=== PATIENT | female | born 1975 | race Caucasian/White ===

== ENCOUNTER 2018-07-26 10:20 | Emergency (ER) | payer SELFPAY ==
[2018-07-26 10:20] VITALS: BP 128/87; PULSE 88; RESP 20; TEMP 36.9; O2SAT 99
--- NOTE | 2018-07-26 11:27 | ED_ITS ---
HPI - Abdominal Pain General Chief Complaint: Abdominal Pain Stated Complaint: DISCOMFORT/PAIN/SWELLING/NAUSEA LOWER ABDOMINAL Time Seen by Provider: 07/26/18 11:26 Source: patient Mode of arrival: ambulatory Limitations: no limitations History of Present Illness HPI narrative: 42-year-old female comes to the emergency department with complaint of abdominal pain. Patient states that it started on , that w as at its peak. She states about 2:00 a.m. was when it started. She states it was can a lower pelvic, and it has improved since then. Patient states at the time she was nauseated. She did have any vomiting. She has had sometimes painful bowel movements when she is very constipated. She has not had any frequency urgency or dysuria but states she has had painful sexual activity. Sometimes feels like there is something in the way down there. She has a regular. Sometimes 2 in a month. She regularly has some clear vaginal discharge. She has not had new changes to this. Sometimes there is an odor recently. Patient states that she had a Pap remotely was told that there were changes and she needed a biopsy but she never got that done. She is quite anxious as her mother of ovarian cancer, her grandmother also had ovarian cancer and she never followed up with this. She states she has a lot of anxiety about being in hospitals and typically would not come here but became more more concerned she could have ovarian cancer. She has not seen a doctor in many years and has not follow up regularly. Related Data Home Medications Medication Instructions Recorded Confirmed No Known Home Medications 07/26/18 07/26/18 Allergies Allergy/AdvReac Type Severity Reaction Status Date / Time codeine AdvReac Nausea Verified 07/26/18 10:35 Review of Systems Review of Systems ROS Unobtainable: All systems reviewed & are unremarkable except as noted in HPI and below Constitutional Denies chills, Denies fever(s), Denies lethargy and Denies weakness Cardiovascular Denies chest pain, Denies dyspnea and Denies dyspnea on exertion Respiratory Denies dyspnea and Denies dyspnea on exertion Gastrointestinal Gastrointestinal: Reports abdominal pain (lower pelvic pain), Denies melena, Denies hematochezia, Denies change in bowel habits, Reports tenesmus (sometimes with hard stool), Reports constipation, Denies diarrhea, Denies nausea and Denies vomiting Genitourinary Reports abnormal menses, Denies hematuria, Denies urinary frequency, Denies difficulty voiding, Reports dyspareunia, Denies dysuria, Reports pelvic pain, Denies flank pain, Denies urinary incontinence, Denies urinary hesitancy, Denies urinary urgency, Reports vaginal discharge (typically clear) and Reports vaginal odor (new) Musculoskeletal Denies back pain Neurologic Denies weakness [facility] Social History Smoking Status: Never smoker Family History (Updated 07/26/18 @ 11:45 by Helen Rojas DO) Mother Ovarian cancer Social History (Updated 07/26/18 @ 11:46 by Helen Rojas DO) Smoking Status: Never smoker substance use type: does not use Exam Narrative Exam Narrative: GENERAL: Alert and oriented x three, thin, well-appearing female who appears quite anxious HEENT: Head normocephalic, atraumatic, EOMI, pupils reactive, face symmetric, moist mucous membranes NECK: Supple, full range of motion CARDIOVASCULAR: Regular rate and rhythm without murmurs, rubs or gallops. RESPIRATORY: Breath sounds equal bilaterally, no wheezes rales or rhonchi. ABDOMEN: Soft, nontender. Nondistended. Normoactive bowel sounds all 4 quadrants. No guarding or rebound, rigidity, no mass Female: externa vaginal examl normal, no vaginal bleeding, thin whitish discharge, no odor appreciated, positive for mild cervical motion tenderness, normal speculum exam, no adnexal tenderness/mass. Bimanual exam is normal, no enlarged or tender uterus. Non-gravid. : No CVA tenderness EXTREMITIES: Normal range of motion, no clubbing or edema. Neurovascularly intact NEUROLOGICAL: Cranial nerves II through XII grossly intact. Moving all extremities SKIN: Warm, dry, no petechiae, no rashes or lesions. Initial Vital Signs Initial Vital Signs: Vital Signs Temperature 98.4 F 07/26/18 10:20 Pulse Rate 88 07/26/18 10:20 Respiratory Rate 20 07/26/18 10:20 Blood Pressure 128/87 07/26/18 10:20 Pulse Oximetry 99 07/26/18 10:20 Course Orders Ordered: ED Orders 07/26/18 10:30 Urine Culture Stat Urine Microscopic Stat 07/26/18 11:39 US pelvic complete Stat 07/26/18 12:05 Complete Blood Count AUTO DIFF Stat Comprehensive Metabolic Panel Stat Lipase Stat 07/26/18 13:50 Genital Culture Stat Urine Chlamydia Gonorrhea PCR Stat Wet Prep Tric BV Marlee Stat Vital Signs - 8 hr 07/26/18 10:20 07/26/18 11:54 07/26/18 13:12 Temperature 98.4 F Pulse Rate 88 64 73 Respiratory Rate 20 16 15 Blood Pressure 128/87 Blood Pressure [Left Arm] 121/80 123/68 Pulse Oximetry 99 99 100 MDM - Abdominal Pain Lab Data Attestation: I reviewed the patient's lab results. Result diagrams: 07/26/18 12:05 07/26/18 12:05 Lab Results 07/26/18 07/26/18 07/26/18 Range/Units 10:30 12:05 12:05 WBC 5.9 (4.5-11.0) X10^3/uL RBC 4.29 (4.0-5.2) X10^6/uL Hgb 13.1 (12.0-16.0) g/dL Hct 38.5 (36-46) % MCV 89.7 (80-100) fL MCH 30.5 (26-34) PG MCHC 34.0 (30-36) % RDW 12.4 (11.6-14.8) % Plt Count 206 (150-400) X10^3/uL Neut % (Auto) 73.8 (50-75) % Lymph % (Auto) 18.0 L (25-40) % Gray % (Auto) 7.6 (3-14) % Eos % (Auto) 0.3 L (2-4) % Baso % (Auto) 0.3 (0-2) % Neut # (Auto) 4300 (8006-5421) /uL Lymph # (Auto) 1100 (6309-2227) /uL Gray # (Auto) 400 (0-900) /uL Eos # (Auto) 0 (0-450) /uL Baso # (Auto) 0 (0-100) /uL Sodium 139 (137-145) mmol/L Potassium 3.7 (3.4-5.1) mmol/L Chloride 105 (98-107) mmol/L Carbon Dioxide 26 (22-32) mmol/L BUN 17 (7-17) mg/dL Creatinine 0.60 (0.52-1.04) mg/dL Estimated GFR > 60.0 (>60) mL/min BUN/Creatinine Ratio 28.3 H (6-22) Glucose 112 H (70-100) mg/dL Calcium 9.3 (8.4-10.2) mg/dL Total Bilirubin 0.4 (0.2-1.3) mg/dL AST 16 (14-36) IU/L ALT 13 (9-52) IU/L Alkaline Phosphatase 58 (38-126) U/L Total Protein 7.3 (6.3-8.2) g/dL Albumin 4.1 (3.5-5.0) g/dL Globulin 3.2 (1.7-4.1) g/dL Albumin/Globulin Ratio 1.3 (1.0-2.8) Lipase 51 (23-300) U/L Urine RBC None seen (0-5/HPF) Urine WBC 0-1/hpf (0-5/HPF) Ur Squamous Epith Cells 0-1 /hpf (0-5/HPF) Urine Bacteria None seen (None) Urine Mucus 2+ H (Negative) Ur Culture Indicated? Specimen cultured Point of care testing: Point of Care Testing Test Results Negative Urine Dip Bedside Urine Glucose Negative Bedside Urine Bilirubin + 1 Bedside Urine Ketone +++ 80 Urine Specific [place] 1.025 Bedside Urine Occult Blood - Negative Bedside Urine pH 6.0 Bedside Urine Protein + 30 Bedside Urine Urobilinogen 1+ 2mg Bedside Urine Nitrite - Negative Bedside Urine Leukocytes +/- 15 Esterase Imaging Data pelvic US: Radiologist's impression: [place] [address] Ultrasound Report Signed Patient: Sabrina Stein [facility]#: [id number] : 1975Acct:[id number] Age/Sex: 42 / FDate of Service: 07/26/18 Loc: ED Accession Number: [id number] Procedure: US pelvic complete Ordering Provider: Helen Rojas D.O. PROCEDURE: US PELVIC COMPLETE INDICATIONS: PELVIC PAIN, WORSE , BETTER. ? CYST. FAMILY HISTORY O TECHNIQUE: Real-time scanning was performed of the pelvic organs, with image documentation. Additional endovaginal scanning was necessary due to incomplete visualization of the adnexal and endometrial structures by transabdominal scanning. COMPARISON: None. FINDINGS: Transabdominal scanning: Limited scanning through the kidneys shows no hydronephrosis. No pathologic free abdominal or pelvic fluid. Endovaginal scanning: Uterus: Uterus is anteverted and normal in size, measuring 7.8 x 3.7 x 4.6 cm. No focal myometrial lesion is evident. The endometrial echo stripe measures up to 6 mm in maximal combined thickness. No significant fluid is seen within the endometrium. The endometrium has a trilaminar appearance. Multiple nabothian cysts are evident within the region of the cervix with the largest measuring up to 8 mm in diameter. Ovaries: The ovaries are normal in size. The right ovary measures 3.4 x 1.7 x 2.0 cm. The left ovary measures 2.5 x 1.7 x 1.7 cm. Both ovaries are normal in size without cystic or solid mass. There is a dominant 1.5 cm follicle in the right ovary. Color flow is demonstrated to the ovaries. IMPRESSION: Unremarkable uterus and ovaries. No large ovarian cysts. Dictated by: Joseph Betancourt M.D. on 07/26/2018 at 12:00 Approved by: oJseph Betancourt M.D. on 07/26/2018 at 12:01 [facility] Narrative Medical decision making narrative: Patient is quite anxious about her abdominal pain, she states she thinks she might have had a ruptured ovarian cyst but she is very nervous about ovarian cancer. She has not had follow-up in a long time she has a family history with her mother and grandmother both having it. Discussed she is comfortable doing some basic blood work, on ultrasound as well as pelvic exam. We discussed that we can help get her established with primary care. Patient's ultrasound is negative, lab work does not show any major changes. Patient's pelvic exam she has some discharge and some mild cervical tenderness. Patient states she has had prolonged period of discharge which has been normal for her for many years. She defers any antibiotics at this time and would wait for cultures. Urine is also cultured today. Patient was given referral for the coordinator number but also [facility] as she does not have health insurance currently for health surveillance and Pap smears. Patient left without discharge paperwork bu all instructions were given verbally except for phone number for physician referral line. Discharge Plan Departure Patient Disposition: Home Clinical Impression: Pelvic pain Activity Restrictions/Additional Instructions: Follow-up with the health human resources trainee at [phone] to stab wish a [facility] physician. You can also discussed getting set up with health insurance. [facility] also [facility], well-woman exams for further evaluation/treatment. The phone number is: [phone]. The address [address] You may take Tylenol up to a 1000 mg every 8 hours as needed for pain, you may also take ibuprofen up to 800 mg every 8 hours as needed for pain. Return to the emergency department for fevers greater than 100.4 F, rapidly worsening or new abdominal/pelvic pain, persistent vomiting, black or bloody stools, passing out, new shortness of breath, chest pain or other new or concerning symptoms. Prescriptions: No Action No Known Home Medications RF: 0
--- NOTE | 2018-07-26 11:39 | DI.US.S_ITS ---
PROCEDURE: US PELVIC COMPLETE INDICATIONS: PELVIC PAIN, WORSE URDAY, BETTER. ? CYST. FAMILY HISTORY O TECHNIQUE: Real-time scanning was performed of the pelvic organs, with image documentation. Additional endovaginal scanning was necessary due to incomplete visualization of the adnexal and endometrial structures by transabdominal scanning. COMPARISON: None. FINDINGS: Transabdominal scanning: Limited scanning through the kidneys shows no hydronephrosis. No pathologic free abdominal or pelvic fluid. Endovaginal scanning: Uterus: Uterus is anteverted and normal in size, measuring 7.8 x 3.7 x 4.6 cm. No focal myometrial lesion is evident. The endometrial echo stripe measures up to 6 mm in maximal combined thickness. No significant fluid is seen within the endometrium. The endometrium has a trilaminar appearance. Multiple nabothian cysts are evident within the region of the cervix with the largest measuring up to 8 mm in diameter. Ovaries: The ovaries are normal in size. The right ovary measures 3.4 x 1.7 x 2.0 cm. The left ovary measures 2.5 x 1.7 x 1.7 cm. Both ovaries are normal in size without cystic or solid mass. There is a dominant 1.5 cm follicle in the right ovary. Color flow is demonstrated to the ovaries. IMPRESSION: Unremarkable uterus and ovaries. No large ovarian cysts. Dictated by: Joseph Betancourt M.D. on 07/26/2018 at 12:00 Approved by: Joseph Betancourt M.D. on 07/26/2018 at 12:01
[2018-07-26 11:41] LABS: Bacteria Urine None Seen; RBC Urine None Seen (0-5/HPF)
[2018-07-26 11:54] VITALS: BP 121/80; PULSE 64; RESP 16; O2SAT 99
[2018-07-26 12:14] LABS: Add Manual Diff / Slide Review NO; Basophils Absolute Auto 0 /uL (0-100); Basophils Percent Auto 0.3 % (0-2); Eosinophils Absolute Auto 0 /uL (0-450); Eosinophils Percent Auto 0.3 % (2-4); Hematocrit 38.5 % (36-46); Hemoglobin 13.1 g/dL (12.0-16.0); Lymphocytes Absolute Auto 1100 /uL (1100-4500); Mean Corpuscular Hemoglobin 30.5 PG (26-34); Mean Corpuscular Volume 89.7 fL (80-100); Monocytes Absolute Auto 400 /uL (0-900); Monocytes Percent Auto 7.6 % (3-14); Neutrophils Absolute Auto 4300 /uL (1500-7000); Neutrophils Percent Auto 73.8 % (50-75); Platelet Count 206 X10^3/uL (150-400); Red Blood Cell Count 4.29 X10^6/uL (4.0-5.2); Red Cell Distribution Width 12.4 % (11.6-14.8); White Blood Cell Count 5.9 X10^3/uL (4.5-11.0)
[2018-07-26 12:15] LABS: Mucus Urine 2+ (Negative); Squamous Epithelial Cell Urine 0-1 /HPF (0-5/HPF); WBC Urine 0-1/HPF (0-5/HPF)
[2018-07-26 12:16] LABS: Culture Indicated Urine Specimen Cultured
[2018-07-26 12:30] LABS: Alanine Aminotransferase 13 IU/L (9-52); Albumin 4.1 g/dL (3.5-5.0); Albumin Globulin Ratio 1.3 (1.0-2.8); Alkaline Phosphatase 58 U/L (38-126); Aspartate Aminotransferase 16 IU/L (14-36); BUN Creatinine Ratio 28.3 (6-22); Bilirubin Total 0.4 mg/dL (0.2-1.3); Blood Urea Nitrogen 17 mg/dL (7-17); Calcium 9.3 mg/dL (8.4-10.2); Carbon Dioxide 26 mmol/L (22-32); Chloride 105 mmol/L (98-107); Estimated Glomerular Filt Rate > 60.0 mL/min (>60); Globulin 3.2 g/dL (1.7-4.1); Glucose 112 mg/dL (70-100); HEMOLYSIS < 15 (0-50); Lipase 51 U/L (23-300); Potassium 3.7 mmol/L (3.4-5.1); Sodium 139 mmol/L (137-145); Total Protein 7.3 g/dL (6.3-8.2)
[2018-07-26 13:12] VITALS: BP 123/68; PULSE 73; RESP 15; O2SAT 100
--- NOTE | 2018-07-26 14:10 | PC.NURSE ---
standby assist for pelvic exam.
[2018-07-26 16:24] LABS: Urine N gonorrhoeae NOT DETECTED
[2018-07-26 16:34] LABS: Urine Chlamydia NOT DETECTED
== END 2018-07-26 14:15 | disposition home or self-care (01) ==
PROVIDERS: Emergency Provider Emergency Medicine
DX: R10.2 Pelvic and perineal pain (principal); R11.0 Nausea
CPT/HCPCS: 36415; 76830; 76856; 80053; 81003; 81015; 81025; 83690; 85025; 87077; 87086; 87210; 87491; 87591; 99283; 99284

== ENCOUNTER 2019-12-10 14:10 | Emergency (ER) | payer SELFPAY ==
[2019-12-10 14:20] VITALS: BP 136/70; PULSE 75; RESP 14; TEMP 36.7; O2SAT 98; BMI 21.8
[2019-12-10 14:41] LABS: Bacteria Urine Few (2-10); RBC Urine 1-5/HPF (0-5/HPF); Squamous Epithelial Cell Urine 0-1 /HPF (0-5/HPF); WBC Urine 30-100/HPF (0-5/HPF)
[2019-12-10 14:42] LABS: Culture Indicated Urine Specimen Cultured; Hyaline Casts Urine 0-1/LPF; Mucus Urine 1+ (Negative)
[2019-12-10 15:02] VITALS: BP 135/70; PULSE 76; RESP 16; TEMP 36.7; O2SAT 98
--- NOTE | 2019-12-10 15:16 | ED.FEMALEGU ---
HPI - Female Genitourinary <SHEEBA Singer - Last Filed: 12/10/19 18:25> General Chief complaint: Urogenital-Female Stated complaint: Back pain/Lower abd pain Time Seen by Provider: 12/10/19 14:11 Source: patient Mode of arrival: Ambulatory Limitations: no limitations History of Present Illness HPI Narrative: 44-year-old female presents emergency department for bilateral flank pain and lower abdominal/bladder pressure for the past 4 days. She states she initially had urinary urgency and frequency, patient states she was menstruating at the time so was unsure if this was abnormal. She then developed the back pain and chills. She denies any nausea, vomiting, diarrhea, chest pain, shortness of breath, history of kidney stones, or dizziness. Patient states she was told to have follow-up Pap smears but has not followed up with her doctor. She reports her menstruation cycles have been irregular for the past 3-4 years. She denies any heavy bleeding or fall odor. Related Data Previous Rx's Medication Instructions Recorded cephalexin 500 mg PO BID 14 Days #28 cap 12/10/19 phenazopyridine [Pyridium] 100 mg PO TID PRN #6 tab 12/10/19 Allergies Allergy/AdvReac Type Severity Reaction Status Date / Time codeine AdvReac Nausea Verified 12/10/19 14:25 Review of Systems <SHEEBA Singer - Last Filed: 12/10/19 18:25> Review of Systems Narrative: REVIEW OF SYSTEMS: GENERAL: Denies fever or chills. HENT: No head trauma. CARDIOVASCULAR: No chest pain. RESPIRATORY: No shortness of breath or cough. GASTROINTESTINAL: No nausea or vomiting. GENITOURINARY: Reports increased urinary frequency and bilateral flank pain, see HPI. MUSCULOSKELETAL: No trauma. INTEGUMENTARY: No rash, lesions, or pruritus. NEURO: No memory loss or confusion. Patient History <SHEEBA Singer - Last Filed: 12/10/19 18:25> Medical History No significant medical problems (Acute) Family History Mother Ovarian cancer alcohol intake frequency: holidays/special occasions only Substance Use Type: marijuana Exam <HSEEBA Singer - Last Filed: 12/10/19 18:25> Initial Vital Signs Initial Vital Signs: Vital Signs Temperature 98.0 F 12/10/19 14:20 Pulse Rate 75 12/10/19 14:20 Respiratory Rate 14 12/10/19 14:20 Blood Pressure 136/70 12/10/19 14:20 Pulse Oximetry 98 12/10/19 14:20 PHYSICAL EXAMINATION: GENERAL: Well groomed, alert, and cooperative. Answers questions promptly and appropriately. Vital signs noted. HENT: Normocephalic, atraumatic. Hearing intact. EYES: No periorbital swelling. CARDIOVASCULAR: Regular rate. RESPIRATORY: Normal respiratory rate, trachea midline, airway patent. No stridor, nasal flaring or accessory muscle use. GASTROINTESTINAL: Bowel sounds normoactive. Abdomen is soft and non-tender, reported bladder fullness with palpation of lower pelvic area.. No organomegaly, no palpable masses. GENITALURINARY: Bilateral CVA tenderness. MUSCULOSKELETAL: Normal gait and coordination. Equal tone and mass bilaterally. SKIN: Warm, dry, soft, appropriate color for ethnicity. No lesions, rashes, or wounds to visulized areas. NEURO: Alert and Oriented X 3. Good coordination. No ataxia, or sensory deficits, or cognitive issues. PSYCH: Appropriate affect and mood. <Ivory Guzman DO - Last Filed: 12/11/19 08:41> Initial Vital Signs Initial Vital Signs: Vital Signs Temperature 98.0 F 12/10/19 14:20 Pulse Rate 75 12/10/19 14:20 Respiratory Rate 14 12/10/19 14:20 Blood Pressure 136/70 12/10/19 14:20 Pulse Oximetry 98 12/10/19 14:20 Course <SHEEBA Singer - Last Filed: 12/10/19 18:25> Orders Ordered: ED Orders 12/10/19 14:16 Urine Culture Stat Urine Microscopic Stat Vital Signs Vital signs: Vital Signs - 8 hr 12/10/19 14:20 12/10/19 15:02 Temperature 98.0 F 98.1 F Pulse Rate 75 76 Respiratory Rate 14 16 Blood Pressure 136/70 135/70 Pulse Oximetry 98 98 <Ivory Guzman DO - Last Filed: 12/11/19 08:41> Orders Ordered: ED Orders 12/10/19 14:16 Urine Culture Stat Urine Microscopic Stat Vital Signs Vital signs: Vital Signs - 8 hr 12/10/19 14:20 12/10/19 15:02 Temperature 98.0 F 98.1 F Pulse Rate 75 76 Respiratory Rate 14 16 Blood Pressure 136/70 135/70 Pulse Oximetry 98 98 MDM - Female Genitourinary <SHEEBA Singer - Last Filed: 12/10/19 18:25> Medical Records Attestation: I reviewed the patient's medical records. Lab Data Attestation: I reviewed the patient's lab results. Labs: Lab Results 12/10/19 Range/Units 14:16 Urine RBC 1-5/hpf (0-5/HPF) Urine WBC 30-100/hpf H (0-5/HPF) Ur Squamous Epith Cells 0-1 /hpf (0-5/HPF) Urine Bacteria Few (2-10) H (None) Hyaline Casts 0-1/lpf (None) Urine Mucus 1+ H (Negative) Ur Culture Indicated? Specimen cultured Point of Care Testing Test Results Negative Urine Dip Bedside Urine Glucose Negative Bedside Urine Bilirubin - Negative Bedside Urine Ketone - Negative Urine Specific [place] 1.020 Bedside Urine Occult Blood - Negative Bedside Urine pH 6.0 Bedside Urine Protein - Negative Bedside Urine Urobilinogen - Negative Bedside Urine Nitrite - Negative Bedside Urine Leukocytes + 70 Esterase MDM Narrative Medical decision making narrative: 44-year-old female presenting for increased urinary frequency and bilateral flank pain. Increased concern for pyelonephritis given CVA tenderness on examination, white blood cells and bacteria noted in urinalysis. Less concern for systemic illness due to lack of tachycardia, patient is afebrile and well-appearing. She is able to tolerate fluids without any vomiting. Less concern for acute abdominal etiology given nontender abdominal exam. Less concern for MSK complaints as patient denies any spinal/muscular tenderness with palpation, denied muscle spasms. Patient was started on cephalexin, urine was sent for culture. She was encouraged to follow up with PCP in 1-2 weeks if symptoms continue. Return precautions given for new or worsening symptoms. She agreed to plan of care verbalized understanding. <Ivory Guzman DO - Last Filed: 12/11/19 08:41> Lab Data Labs: Lab Results 12/10/19 Range/Units 14:16 Urine RBC 1-5/hpf (0-5/HPF) Urine WBC 30-100/hpf H (0-5/HPF) Ur Squamous Epith Cells 0-1 /hpf (0-5/HPF) Urine Bacteria Few (2-10) H (None) Hyaline Casts 0-1/lpf (None) Urine Mucus 1+ H (Negative) Ur Culture Indicated? Specimen cultured Point of Care Testing Test Results Negative Urine Dip Bedside Urine Glucose Negative Bedside Urine Bilirubin - Negative Bedside Urine Ketone - Negative Urine Specific [place] 1.020 Bedside Urine Occult Blood - Negative Bedside Urine pH 6.0 Bedside Urine Protein - Negative Bedside Urine Urobilinogen - Negative Bedside Urine Nitrite - Negative Bedside Urine Leukocytes + 70 Esterase Discharge Plan Departure Patient Disposition: Home Clinical Impression: Pyelonephritis Discharge Date/Time: 12/10/19 15:03 Instructions: DI for Kidney Infection Activity Restrictions/Additional Instructions: Thank you for entrusting me with your care today. As discussed, your urine test shows that you have a urinary tract infection, it most likely has spread to your kidneys. I prescribed you antibiotics and and medication that helps numb your urinary tract, if you take this medication your urine will be bright orange Return emergency department for any new or worsening symptoms. I suggest following up with your doctor/PCP in the next 1-2 weeks for further evaluation.. Prescriptions: New cephalexin 500 mg capsule 500 mg PO BID 14 Days Qty: 28 RF: 0 phenazopyridine [Pyridium] 100 mg tablet 100 mg PO TID PRN (Reason: pain) Qty: 6 RF: 0 <Ivory Guzman DO - Last Filed: 12/11/19 08:41> Cosign ED Attending Mike Attestation: I was immediately available in the department for consultation. Documentation has been reviewed. I agree with assessment and plan.
== END 2019-12-10 15:03 | disposition home or self-care (01) ==
PROVIDERS: Emergency Provider Nurse Practitioner
DX: N12 Tubulo-interstitial nephritis, not specified as acute or chronic (principal)
CPT/HCPCS: 81003; 81015; 81025; 87077; 87086; 99282

== ENCOUNTER 2021-12-03 08:25 | Emergency (ER) | payer OTHER, MEDICAID, SELFPAY ==
[2021-12-03 08:30] VITALS: BP 117/74; PULSE 74; RESP 18; TEMP 36.8; O2SAT 99; BMI 21.8
--- NOTE | 2021-12-03 08:43 | DI.RAD.S_ITS ---
PROCEDURE: XR CHEST 2V INDICATIONS: chest pain, upper respiratory symptoms TECHNIQUE: 2 views of the chest were acquired. COMPARISON: None. FINDINGS: Surgical changes and devices: None. Lungs and pleura: Lungs are clear. No pleural effusions or pneumothorax. Mediastinum: Mediastinal contours are normal. Heart size is normal. Bones and chest wall: No suspicious bony abnormalities. Soft tissues appear unremarkable. IMPRESSION: Clear lungs, without infiltrates. Dictated by: Naveen Newton M.D. on 12/03/2021 at 8:11 Approved by: Naveen Newton M.D. on 12/03/2021 at 8:12
--- NOTE | 2021-12-03 09:01 | ED.GENADULT ---
HPI - General Adult General Chief complaint: Upper Respiratory Symptoms Stated complaint: chest pain,cough, congestion Time Seen by Provider: 12/03/21 08:48 Source: patient Mode of arrival: Ambulatory History of Present Illness HPI narrative: Patient is a 46-year-old female who is here for evaluation of approximately 5 days of upper respiratory tract infection like symptoms. Has been having a cough. No fevers. Runny nose. No chest congestion. Has been doing ?detox teas ?at home but no other medications. She is here because she thought maybe she needed some antibiotics. Related Data Previous Rx's Medication Instructions Recorded phenazopyridine 100 mg tablet 100 mg PO TID PRN pain 6 doses #6 12/10/19 (Pyridium) tabs Allergies Allergy/AdvReac Type Severity Reaction Status Date / Time codeine AdvReac Nausea Verified 12/10/19 14:25 Review of Systems Constitutional Constitutional: Reports system reviewed and no additional complaints, except as documented ENT Ears, Nose, Mouth, and Throat: Reports system reviewed and no additional complaints, except as documented Cardiovascular Cardiovascular: Reports system reviewed and no additional complaints, except as documented Respiratory Respiratory: Reports system reviewed and no additional complaints, except as documented Gastrointestinal Gastrointestinal: Reports system reviewed and no additional complaints, except as documented Integumentary/Breasts Skin/Breast: Reports system reviewed and no additional complaints, except as documented Hematologic/Lymphatic On Anticoagulants: No Patient History Medical History (Updated 12/03/21 @ 09:46 by Juan Jo DO) No significant medical problems Family History Mother Ovarian cancer Social History Smoking Status: Never smoker substance use type: does not use Smoking Status: Never smoker alcohol intake frequency: holidays/special occasions only Substance Use Type: marijuana Exam Initial Vital Signs Initial Vital Signs: Vital Signs Temperature 98.3 F 12/03/21 08:30 Pulse Rate 74 12/03/21 08:30 Respiratory Rate 18 12/03/21 08:30 Blood Pressure 117/74 12/03/21 08:30 Pulse Oximetry 99 12/03/21 08:30 Oxygen Delivery Method 12/03/21 08:30 Const General: cooperative, healthy appearing, comfortable and well developed [facility] Head: normocephalic and atraumatic Ears: TM's normal bilaterally Resp Effort & Inspection: normal respiratory effort Auscultation: clear to auscultation bilaterally Cardio Rate: regular rate Skin General: no rashes or lesions noted Neuro General: patient alert, patient awake and moves all extremities Extrem General: normal to inspection and capillary refill normal Psych Appearance: grossly normal and well kempt Course Orders Ordered: ED Orders 12/03/21 08:42 EKG-12 Lead Stat 12/03/21 08:43 XR chest 2V Stat 12/03/21 08:46 COVID19 -Nasal RAPID/Pre-Proc Stat Vital Signs Vital signs: Vital Signs - 8 hr 12/03/21 08:30 Temperature 98.3 F Pulse Rate 74 Respiratory Rate 18 Blood Pressure 117/74 Pulse Oximetry 99 Oxygen Delivery Method Room Air Medical Decision Making Imaging Data Chest x-ray: Radiologist's Impression: [address] [address] XRay Report Signed Patient: Sabrina Stein MR#: [id number] : 1975 Acct:[id number] Age/Sex: 46 / F Date of Service: 12/03/21 Loc: ED Accession Number: [id number] ?? Procedure: XR chest 2V Ordering Provider: Juan Jo D.O. PROCEDURE:? XR CHEST 2V ? INDICATIONS:? chest pain, upper respiratory symptoms ? TECHNIQUE:? 2 views of the chest were acquired.? ? COMPARISON:? None. ? FINDINGS:? ? Surgical changes and devices:? None.? ? Lungs and pleura:? Lungs are clear.? No pleural effusions or pneumothorax.? ? Mediastinum:? Mediastinal contours are normal.? Heart size is normal.? ? Bones and chest wall:? No suspicious bony abnormalities.? Soft tissues appear unremarkable.? IMPRESSION:? ? Clear lungs, without infiltrates. ? ? Dictated by: Naveen Newton M.D. on 12/03/2021 at 8:11 ? ? Approved by: Naveen Newton M.D. on 12/03/2021 at 8:12? ECG Data Attestation: I personally reviewed and interpreted this ECG as follows: Interpretation: Sinus rhythm Ventricular rate is 67 [place] Normal QRS Normal QTC No ST T wave changes MDM Narrative Medical decision making narrative: Patient with upper respiratory tract infection like symptoms. Chest x-ray is negative for pneumonia. No indication for antibiotics. We did discuss the use of decongestants. She was given return precautions. She expressed understanding and agreement with plan. Discharge Plan Departure Patient Disposition: Home Clinical Impression: Upper respiratory infection Instructions: DI for Viral Upper Respiratory Infection -- Adult Activity Restrictions/Additional Instructions: I do recommend that you continue to take all medications as directed. You can try [id number] decongestants such as Claritin or Justyna or Zyrtec. You can purchase the generic versions of these medications. You can contact the [facility] at the number provided below to discussed your past abnormal ultrasound. Return to the emergency department for any new symptoms. Prescriptions: No Action phenazopyridine [Pyridium] 100 mg tablet 100 mg PO TID PRN (Reason: pain) Qty: 6 0RF Referrals: Barbara Boss MD [Physician] - Miscellaneous,MD Hortensia [Primary Care Provider] -
[2021-12-03 10:38] VITALS: BP 108/63; PULSE 76; RESP 16; O2SAT 100
== END 2021-12-03 10:38 | disposition home or self-care (01) ==
PROVIDERS: Emergency Provider Emergency Medicine
DX: J06.9 Acute upper respiratory infection, unspecified (principal); R07.9 Chest pain, unspecified
CPT/HCPCS: 71046; 93005; 93010; 99281; 99284

== ENCOUNTER → 2022-04-09 14:32 | Outpatient (CLI) | payer OTHER, MEDICAID, SELFPAY | PROVIDERS: Visit Provider Physician Assistant | DX: R35.0 Frequency of micturition (principal) | CPT/HCPCS: 87086 ==

== ENCOUNTER 2022-04-09 15:04 | Emergency (ER) | payer OTHER, MEDICAID, SELFPAY ==
--- NOTE | 2022-04-09 15:13 | ED.GENADULT ---
HPI - General Adult General Chief complaint: Abdominal Pain Stated complaint: Ungent care sent over to be further eval. Time Seen by Provider: 04/09/22 15:05 History of Present Illness HPI narrative: 46-year-old female nonsmoker with frequent miscarriages presents from the walk-in clinic for evaluation of some suprapubic cramping and occasional dysuria. She states that she was and had a miscarriage about 2 weeks ago, she states that she was about 2 weeks into her . She denies any ongoing vaginal bleeding or discharge. She has no fever or chills. She is not dizzy nor weak or lightheaded. She states that she is been 7, 8 or 9 times this year and has never received RhoGAM. She is here at the request of the walk-in clinic after performing a urine which was negative for infection or Related Data Previous Rx's Medication Instructions Recorded phenazopyridine 100 mg tablet 100 mg PO TID PRN pain 6 doses #6 12/10/19 (Pyridium) tabs Allergies Allergy/AdvReac Type Severity Reaction Status Date / Time codeine AdvReac Nausea Verified 04/09/22 15:14 Review of Systems Review of Systems Narrative: GENERAL: Denies chills, fatigue, malaise, fever, sweats. HEENT: Denies sinus pain, ear pain, sore throat, difficulty swallowing, dizziness. RESPIRATORY: Denies dyspnea, cough, wheezing, hemoptysis, sputum. CARDIOVASCULAR: Denies chest pain, palpitations, orthopnea, edema, GASTROINTESTINAL: See HPI. : See HPI MUSCULOSKELETAL: denies weakness, joint pain, or bony pain SKIN: Denies rash, skin lesions, or other NEUROLOGIC: Denies weakness, headache, numbness, change in speech, confusion, seizures, incoordination. PSYCHIATRIC: No concerning psychosocial issues. 12 point review of systems is negative except for those stated above Patient History Medical History (Updated 04/09/22 @ 17:57 by Jose Luis Knox DO) No significant medical problems Family History Mother Ovarian cancer Social History Smoking Status: Never smoker substance use type: does not use Smoking Status: Never smoker alcohol intake frequency: holidays/special occasions only Substance Use Type: marijuana Exam Narrative Exam Narrative: GENERAL: [46] year old patient appears stated age. Well-developed patient, in mild distress. HEAD: Atraumatic. Normocephalic. EYES: Pupils equal round and reactive. Extraocular motions intact. No scleral icterus. No injection or drainage. ENT: Nose without bleeding, purulent drainage. Throat without erythema, tonsillar hypertrophy or exudate. Airway patent. NECK: Trachea midline. Non tender CARDIOVASCULAR: Regular rate and rhythm without murmurs, gallops, or rubs. RESPIRATORY: Clear to auscultation. Breath sounds equal bilaterally. No wheezes, rales, or rhonchi. GASTROINTESTINAL: Abdomen soft, non-tender, nondistended. EXTREMITIES: No edema or joint tenderness. BACK: Nontender without deformity or crepitance. No flank tenderness. NEURO: AOx3. SKIN: No rash or erythema of visible areas Initial Vital Signs Initial Vital Signs: Vital Signs Temperature 98.2 F 04/09/22 15:14 Pulse Rate 78 04/09/22 15:14 Respiratory Rate 18 04/09/22 15:14 Blood Pressure 160/96 H 04/09/22 15:14 Pulse Oximetry 98 04/09/22 15:14 Oxygen Delivery Method 04/09/22 15:14 Course Orders Ordered: ED Orders 04/09/22 15:16 US pelvic complete Stat 04/09/22 15:40 ABO RH Type Stat Antibody Screen Stat Test Serum,Qual Stat Consultations Consultation #1: Discussed with Dr. Pappas, no immediate recommendations for evaluation or treatment, does recommend she follow-up with her clinic to pursue potential evaluation of frequent loss Vital Signs Vital signs: Vital Signs - 8 hr 04/09/22 15:14 Temperature 98.2 F Pulse Rate 78 Respiratory Rate 18 Blood Pressure 160/96 H Pulse Oximetry 98 Oxygen Delivery Method Room Air Medical Decision Making Lab Data Labs: Lab Results 04/09/22 04/09/22 Range/Units 15:40 15:40 Serum , Qual Negative (Negative) Blood Type O Negative Antibody Screen Negative Imaging Data US - [employer]ER: Radiologist's Impression: Close Pelvis Ultrasound (Signed) CallCasimiro - 04/09/22 Launch?[address] [address] Ultrasound Report Signed Patient: Sabrina Stein MR#: [id number] : 1975 Acct:[id number] Age/Sex: 46 / F Date of Service: 04/09/22 Loc: ED Accession Number: [id number] ?? Procedure: US pelvic complete Ordering Provider: Jose Luis Knox D.O. PROCEDURE:? US PELVIC COMPLETE ? INDICATIONS:? CRAMPING 2 WEEKS POST SAB ? TECHNIQUE:? Real-time scanning was performed of the pelvic organs, with image documentation.? Additional endovaginal scanning was necessary due to incomplete visualization of the adnexal and endometrial structures by transabdominal scanning.? ? COMPARISON:? [facility] Ultrasound, US, US PELVIC COMPLETE WITH TRANSVAGINAL, 07/26/2020, 12:26. ? FINDINGS:? ?? Uterus:? Uterus is anteverted and normal in size at 8.8 x 5.4 x 4.3 cm. The myometrium is homogeneous. ? The endometrium measures 8 mm combined thickness.? Anechoic cyst at the lower uterine segment measuring 1 cm.? No retained products of conception demonstrated. ? Ovaries:? The right ovary measures 3.5 x 1.2 x 1.1 cm cm, with a calculated ovarian volume of 2 cc.? Right ovarian hypoechoic cyst measuring 1.3 x 1.3 x 0.8 cm.? Left ovary is not seen. ? Other:? No pathologic free abdominal or pelvic fluid. ? ? IMPRESSION:? 1. No retained products of conception demonstrated.? Small anechoic cyst at the lower uterine segment measuring 1 cm. ? 2. Small right ovarian hypoechoic cyst measuring 1.3 cm.? Left ovary is not seen. ? Follow-up pelvic ultrasound could be considered. ? ? We strive to produce accurate, complete, and clear reports of imaging services. To assist us in improving patient care, this report was composed using standard report templates and voice recognition software. Therefore, it may contain abnormal punctuation, insertions and/or omissions. Occasional wrong-word or sound-alike substitutions may occur. Though we review the report and make efforts to correct it, we do recommend that the report be read carefully in proper context to recognize any text inaccuracies. ? ? Dictated by: Casimiro Shields M.D. on 04/09/2022 at 16:21 ? ? Approved by: Casimiro Shields M.D. on 04/09/2022 at 16:25 ? MDM Narrative Medical decision making narrative: [46F Rh negative female with frequent miscarriages presents at request of walk-in clinic for evaluation of possible retained products] Multiple etiologies for patient's symptoms considered including, but not limited to: [UTI, , miscarriage versus other] Prior Charts reviewed: Multiple notes in EMR Labs reviewed and interpreted by myself: Urine from walk-in clinic reviewed, no sign of infection, no evidence of , Rh negative, antibody negative Imaging reviewed: No evidence of retained products Consultations: Discussed with on-call OB Patient's symptoms improved over duration of stay with above-stated therapies. Findings and discharge diagnosis discussed with patient/family followed by verbalization of understanding Return precautions discussed with patient/family whom verbalize understanding of diagnosis and plan Discharge Plan Departure Patient Disposition: Home Clinical Impression: Dysuria Instructions: DI for Dysuria -- Adult Activity Restrictions/Additional Instructions: *You have been diagnosed with [dysuria, frequent miscarriages] *What to do: *Please continue to take your regular medications as directed. [ ] New medication prescriptions sent to your pharmacy: [ ] [ ] New medication written as a paper prescription [ x] No new medications given *Please follow up with Dr. Pappas, please call tomorrow morning and let them know that you were seen in the emergency department and we would like you seen in follow-up *Return to Emergency Department if you should have any new, worsening or concerning symptoms, such as [fever greater than 101 F, shaking chills, worsening pain, persistent vomiting or other bothersome symptoms] Prescriptions: No Action phenazopyridine [Pyridium] 100 mg tablet 100 mg PO TID PRN (Reason: pain) Qty: 6 0RF Referrals: Thao Pappas MD [Physician] - Miscellaneous,DoctorMD [Primary Care Provider] - Stand Alone Forms: Patient Portal/API
[2022-04-09 15:14] VITALS: BP 160/96; PULSE 78; RESP 18; TEMP 36.8; O2SAT 98; BMI 22.2
--- NOTE | 2022-04-09 15:16 | DI.US.S_ITS ---
PROCEDURE: US PELVIC COMPLETE INDICATIONS: CRAMPING 2 WEEKS POST SAB TECHNIQUE: Real-time scanning was performed of the pelvic organs, with image documentation. Additional endovaginal scanning was necessary due to incomplete visualization of the adnexal and endometrial structures by transabdominal scanning. COMPARISON: [facility] Ultrasound, US, US PELVIC COMPLETE WITH TRANSVAGINAL, 07/26/2020, 12:26. FINDINGS: Uterus: Uterus is anteverted and normal in size at 8.8 x 5.4 x 4.3 cm. The myometrium is homogeneous. The endometrium measures 8 mm combined thickness. Anechoic cyst at the lower uterine segment measuring 1 cm. No retained products of conception demonstrated. Ovaries: The right ovary measures 3.5 x 1.2 x 1.1 cm cm, with a calculated ovarian volume of 2 cc. Right ovarian hypoechoic cyst measuring 1.3 x 1.3 x 0.8 cm. Left ovary is not seen. Other: No pathologic free abdominal or pelvic fluid. IMPRESSION: 1. No retained products of conception demonstrated. Small anechoic cyst at the lower uterine segment measuring 1 cm. 2. Small right ovarian hypoechoic cyst measuring 1.3 cm. Left ovary is not seen. Follow-up pelvic ultrasound could be considered. We strive to produce accurate, complete, and clear reports of imaging services. To assist us in improving patient care, this report was composed using standard report templates and voice recognition software. Therefore, it may contain abnormal punctuation, insertions and/or omissions. Occasional wrong-word or sound-alike substitutions may occur. Though we review the report and make efforts to correct it, we do recommend that the report be read carefully in proper context to recognize any text inaccuracies. Dictated by: Casimiro Shields M.D. on 04/09/2022 at 16:21 Approved by: Casimiro Shields M.D. on 04/09/2022 at 16:25
[2022-04-09 16:09] LABS: Pregnancy Test Serum,Qual Negative (Negative)
[2022-04-09 17:13] VITALS: BP 129/89; PULSE 73; O2SAT 99
[2022-04-09 17:15] VITALS: BP 129/89
[2022-04-09 18:07] VITALS: BP 142/90; PULSE 81; O2SAT 98
== END 2022-04-09 18:15 | disposition home or self-care (01) ==
PROVIDERS: Emergency Provider Emergency Medicine
DX: R30.0 Dysuria (principal); R10.2 Pelvic and perineal pain; N96 Recurrent pregnancy loss; R35.0 Frequency of micturition
CPT/HCPCS: 36415; 76830; 76856; 81002; 81025; 84703; 86850; 86900; 86901; 87086; 99283; 99284

== ENCOUNTER → 2022-08-14 13:31 | Outpatient (CLI) | payer OTHER, MEDICAID, SELFPAY | PROVIDERS: PCP Family Medicine; Visit Provider Family Medicine | DX: R31.9 Hematuria, unspecified (principal); R10.9 Unspecified abdominal pain | CPT/HCPCS: 87086 ==

== ENCOUNTER → 2022-08-14 14:03 | Outpatient (CLI) | payer OTHER, MEDICAID, SELFPAY ==
[2022-08-14 15:49] LABS: Add Manual Diff / Slide Review NO; Basophils Absolute Auto 0 /uL (0-100); Basophils Percent Auto 0.6 % (0-2); Eosinophils Absolute Auto 100 /uL (0-450); Eosinophils Percent Auto 1.1 % (2-4); Hematocrit 38.1 % (36-46); Hemoglobin 13.1 g/dL (12.0-16.0); Lymphocytes Absolute Auto 1800 /uL (1100-4500); Mean Corpuscular HGB Conc 34.3 % (30-36); Mean Corpuscular Hemoglobin 30.7 PG (26-34); Mean Corpuscular Volume 89.5 fL (80-100); Monocytes Absolute Auto 600 /uL (0-900); Monocytes Percent Auto 8.4 % (3-14); Neutrophils Absolute Auto 4700 /uL (1500-7000); Neutrophils Percent Auto 64.9 % (50-75); Platelet Count 297 X10^3/uL (150-400); Red Blood Cell Count 4.26 X10^6/uL (4.0-5.2); Red Cell Distribution Width 13.2 % (11.6-14.8); White Blood Cell Count 7.3 X10^3/uL (4.5-11.0)
[2022-08-14 16:19] LABS: Alanine Aminotransferase 15 IU/L (<35); Albumin 4.1 g/dL (3.5-5.0); Albumin Globulin Ratio 1.3 (1.0-2.8); Alkaline Phosphatase 68 U/L (38-126); Aspartate Aminotransferase 21 IU/L (14-36); Bilirubin Total 0.3 mg/dL (0.2-1.3); Blood Urea Nitrogen 11 mg/dL (7-17); Calcium 8.4 mg/dL (8.4-10.2); Carbon Dioxide 27 mmol/L (22-32); Chloride 103 mmol/L (98-107); Estimated Glomerular Filt Rate > 60 mL/min (>60); Globulin 3.1 g/dL (1.7-4.1); Glucose 86 mg/dL (70-100); HEMOLYSIS < 15 (0-50); Potassium 3.6 mmol/L (3.4-5.1); Sodium 137 mmol/L (137-145); Total Protein 7.2 g/dL (6.3-8.2)
[2022-08-14 16:45] LABS: TSH w/ Reflex to FT4 2.39 uIU/mL (0.47-4.68)
== END ==
PROVIDERS: PCP Family Medicine; Referring Provider Family Medicine; Visit Provider Family Medicine
DX: N92.6 Irregular menstruation, unspecified (principal); R31.9 Hematuria, unspecified; R10.2 Pelvic and perineal pain; F32.9 Major depressive disorder, single episode, unspecified
CPT/HCPCS: 36415; 80053; 81002; 81025; 84443; 85025; 87077; 87086; 87186

== ENCOUNTER → 2022-11-29 08:27 | Outpatient (CLI) | payer OTHER, MEDICAID, SELFPAY ==
[2022-11-29 09:23] LABS: Free T3, Triiodothyronine Free 3.29 pg/mL (2.77-5.27)
[2022-11-29 09:37] LABS: Thyroid Stimulating Hormone 2.52 uIU/mL (0.47-4.68)
== END ==
PROVIDERS: PCP Family Medicine; Referring Provider Student in an Organized Health Care Education/Training Program; Visit Provider Student in an Organized Health Care Education/Training Program
DX: R63.5 Abnormal weight gain (principal)
CPT/HCPCS: 36415; 84439; 84443; 84481

== ENCOUNTER 2022-12-10 10:45 | Emergency (ER) | payer OTHER, MEDICAID, SELFPAY ==
[2022-12-10 11:04] VITALS: BP 152/93; PULSE 97; RESP 20; TEMP 36.6; O2SAT 97; BMI 24.4
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
[2022-12-10 11:23] LABS: COVID19 -Nasal RAPID Negative (Negative)
[2022-12-10 11:50] LABS: UR Morphine/Opiate cutoff 300 Negative (Negative); Ur Creatinine Normal (Normal); Ur Specific Gravity Normal (Normal); Urine Amphetamines Negative (Negative); Urine Barbiturates Negative (Negative); Urine Benzodiazepines Negative (Negative); Urine Cocaine Negative (Negative); Urine MDMA Negative (Negative); Urine Methadone Negative (Negative); Urine Methamphetamines Negative (Negative); Urine Oxycodone Negative (Negative); Urine Phencyclidine Negative (Negative); Urine Tetrahydrocannabinol Positive (Negative); Urine Tricyclic Antidepressant Negative (Negative); Urine pH Normal (Normal)
[2022-12-10 12:00] LABS: Add Manual Diff / Slide Review NO; Basophils Absolute Auto 100 /uL (0-100); Eosinophils Absolute Auto 0 /uL (0-450); Eosinophils Percent Auto 0.5 % (2-4); Hemoglobin 13.6 g/dL (12.0-16.0); Lymphocytes Absolute Auto 1400 /uL (1100-4500); Mean Corpuscular Hemoglobin 30.5 PG (26-34); Mean Corpuscular Volume 89.7 fL (80-100); Monocytes Absolute Auto 600 /uL (0-900); Monocytes Percent Auto 8.9 % (3-14); Neutrophils Absolute Auto 4400 /uL (1500-7000); Neutrophils Percent Auto 67.6 % (50-75); Platelet Count 302 X10^3/uL (150-400); Red Blood Cell Count 4.46 X10^6/uL (4.0-5.2); Red Cell Distribution Width 13.2 % (11.6-14.8); White Blood Cell Count 6.5 X10^3/uL (4.5-11.0)
[2022-12-10 12:14] LABS: Acetaminophen < 10 ug/mL (10-30); Alanine Aminotransferase 19 IU/L (<35); Albumin 4.5 g/dL (3.5-5.0); Albumin Globulin Ratio 1.3 (1.0-2.8); Alkaline Phosphatase 73 U/L (38-126); Aspartate Aminotransferase 23 IU/L (14-36); BUN Creatinine Ratio 22.4 (6-22); Bilirubin Total 0.4 mg/dL (0.2-1.3); Blood Urea Nitrogen 11 mg/dL (7-17); Calcium 9.1 mg/dL (8.4-10.2); Carbon Dioxide 21 mmol/L (22-32); Chloride 107 mmol/L (98-107); Estimated Glomerular Filt Rate > 60 mL/min (>60); Ethanol (ETOH) < 10 mg/dL; Globulin 3.4 g/dL (1.7-4.1); Glucose 90 mg/dL (70-100); HEMOLYSIS 26 (0-50); Potassium 4.1 mmol/L (3.4-5.1); Salicylate < 1.0 mg/dL (<20); Sodium 138 mmol/L (137-145); Total Protein 7.9 g/dL (6.3-8.2)
--- NOTE | 2022-12-10 12:19 | PC.NURSE ---
Addendum entered by Shital Alcantar CNA 12/10/22 12:45: pt. sitting in partners lap crying and talking with partner at bedside Original Note: classified advertising supervisor note: partner Marlon and ANA chamorro at bedside speaking with pt.
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
--- NOTE | 2022-12-10 13:11 | ED_ITS ---
HPI - Psych General Chief Complaint: Psychiatric Symptoms Stated Complaint: SI Time Seen by Provider: 12/10/22 11:25 Source: patient, EMS and police Mode of arrival: EMS History of Present Illness HPI Narrative: This is a 47-year-old female with recent depression, reported suicidal ideation. Patient is reluctant to tell me if she is suicidal currently she has not thoughts or plans. She states she is afraid that she would get locked up. Patient has made statements to her family about wanting to go be with her mother who has . And saying that she would miss her cats. Today she was out in the rain on dressed with a machete. She states she was just trying to get outdoors for cleansing type ritual. Her and her both state she is been going out in the [place] a lot she mushroom hunting and spends a lot of time in the [place] behind their home in the [place] area and that they suspect there is a bear in the area which is why she carries the machete. She did not harm herself today. Patient is very tearful. Her mom, some other family members in her dog have all fairly recently. She did see a counselor once but states it was not helpful. She states she has not been on any daily medications she told social work she is been reluctant to take any medication she does not want to go to counseling she does not want to view a appointment. Her thinks she would probably be able to be safe at home if he stayed there but patient is not been radha for safety. She denies any prior inpatient psychiatric stay she has had some what sounds like depression on and off. She is not on any daily medications. Allergy to codeine. No tobacco, occasional alcohol, uses marijuana but no other recreational drugs. She is accompanied by her . She was brought by law enforcement, has been saw video patient out side and got some cryptic messages that were concerning. He contacted law enforcement who brought patient here. Related Data Home Medications Medication Instructions Recorded Confirmed No Known Home Medications 11/16/22 11/29/22 Allergies Allergy/AdvReac Type Severity Reaction Status Date / Time codeine AdvReac Nausea Verified 11/29/22 07:59 Review of Systems Review of Systems ROS Unobtainable: All systems reviewed & are unremarkable except as noted in HPI and below Patient History Medical History Acne Major depression, single episode No significant medical problems Family History Mother Ovarian cancer Social History Smoking Status: Never smoker substance use type: does not use Smoking Status: Never smoker alcohol intake frequency: holidays/special occasions only Substance Use Type: marijuana Exam Narrative Exam Narrative: GENERAL: Alert and oriented x three, tearful female in mild distress. HEENT: Head normocephalic, atraumatic, EOMI, pupils reactive, face symmetric, moist mucous membranes NECK: Supple, full range of motion CARDIOVASCULAR: Regular rate and rhythm without murmurs, rubs or gallops. RESPIRATORY: Breath sounds equal bilaterally, no wheezes rales or rhonchi. ABDOMEN: Soft, nontender. Normoactive bowel sounds all 4 quadrants. No guarding or rebound, rigidity, no mass : No CVA tenderness EXTREMITIES: Normal range of motion, no clubbing or edema. Neurovascularly intact NEUROLOGICAL: Cranial nerves II through XII grossly intact. Moving all extremities SKIN: Warm, dry, no petechiae, no rashes or lesions. PSYCH: Depression, reports of suicidal ideation patient is reluctant to answer. No hallucinations Initial Vital Signs Initial Vital Signs: Vital Signs Temperature 97.8 F 12/10/22 11:04 Pulse Rate 97 H 12/10/22 11:04 Respiratory Rate 20 12/10/22 11:04 Blood Pressure 152/93 H 12/10/22 11:04 Pulse Oximetry 97 12/10/22 11:04 Oxygen Delivery Method Room Air 12/10/22 11:04 Course Orders Ordered: ED Orders 12/10/22 11:03 Urine Culture Stat Urine Drug Screen, Rapid Stat Urine Microscopic Stat 12/10/22 11:07 COVID19 -Nasal RAPID Stat 12/10/22 11:16 Consult to NAMED ACCOUNT EXECUTIVE - Learning Officer Stat 12/10/22 11:49 Acetaminophen Stat Complete Blood Count AUTO DIFF Stat Comprehensive Metabolic Panel Stat Ethanol (ETOH) Stat Free T4, Direct Thyroxine Stat Salicylate Stat Thyroid Stimulating Hormone Stat Discontinued Medications Ibuprofen (Ibuprofen 400 Mg Tablet) 400 mg PO NOW ONE Stop: 12/10/22 15:36 Last Admin: 12/10/22 16:09 Dose: 400 mg Documented By: PACO Ondansetron HCl (Ondansetron 4 Mg Odt) 4 mg PO NOW ONE Stop: 12/10/22 15:36 Last Admin: 12/10/22 16:10 Dose: 4 mg Documented By: PACO Vital Signs Vital signs: Vital Signs - 8 hr 12/10/22 14:58 Pulse Rate 73 Blood Pressure 122/69 Pulse Oximetry 98 Oxygen Delivery Method Room Air MDM - Psych Lab Data 12/10/22 11:49 12/10/22 11:49 Labs: Lab Results 12/10/22 12/10/22 12/10/22 Range/Units 11:03 11:07 11:49 WBC 6.5 (4.5-11.0) X10^3/uL RBC 4.46 (4.0-5.2) X10^6/uL Hgb 13.6 (12.0-16.0) g/dL Hct 40.0 (36-46) % MCV 89.7 (80-100) fL MCH 30.5 (26-34) PG MCHC 34.0 (30-36) % RDW 13.2 (11.6-14.8) % Plt Count 302 (150-400) X10^3/uL Neut % (Auto) 67.6 (50-75) % Lymph % (Auto) 22.0 L (25-40) % [place] % (Auto) 8.9 (3-14) % Eos % (Auto) 0.5 L (2-4) % Baso % (Auto) 1.0 (0-2) % Neut # (Auto) 4400 (9822-4176) /uL Lymph # (Auto) 1400 (9295-8486) /uL [place] # (Auto) 600 (0-900) /uL Eos # (Auto) 0 (0-450) /uL Baso # (Auto) 100 (0-100) /uL Sodium 138 (137-145) mmol/L Potassium 4.1 (3.4-5.1) mmol/L Chloride 107 (98-107) mmol/L Carbon Dioxide 21 L (22-32) mmol/L BUN 11 (7-17) mg/dL Creatinine 0.49 L (0.52-1.04) mg/dL Estimated GFR > 60 (>60) mL/min BUN/Creatinine Ratio 22.4 H (6-22) Glucose 90 (70-100) mg/dL Calcium 9.1 (8.4-10.2) mg/dL Total Bilirubin 0.4 (0.2-1.3) mg/dL AST 23 (14-36) IU/L ALT 19 (<35) IU/L Alkaline Phosphatase 73 (38-126) U/L Total Protein 7.9 (6.3-8.2) g/dL Albumin 4.5 (3.5-5.0) g/dL Globulin 3.4 (1.7-4.1) g/dL Albumin/Globulin Ratio 1.3 (1.0-2.8) TSH 1.98 D (0.47-4.68) uIU/mL Free T4 1.14 (0.78-2.19) ng/dL Urine RBC >100/hpf H (0-5/HPF) Urine WBC 10-30/hpf H (0-5/HPF) Ur Squamous Epith Cells 10-30 /hpf H D (0-5/HPF) Urine Bacteria Moderate (10-30) H (None) Ur Culture Indicated? Specimen cultured Salicylates < 1.0 (<20) mg/dL U Opiates 300ng/mL cut Negative (Negative) Ur Oxycodone Screen Negative (Negative) Urine Methadone Screen Negative (Negative) Acetaminophen < 10 (10-30) ug/mL Ur Barbiturates Screen Negative (Negative) U Tricyclic Antidepress Negative (Negative) Ur Phencyclidine Scrn Negative (Negative) Ur Amphetamines Screen Negative (Negative) U Methamphetamines Scrn Negative (Negative) Ur MDMA Scrn (Ecstasy) Negative (Negative) U Benzodiazepines Scrn Negative (Negative) Urine Cocaine Screen Negative (Negative) U Marijuana (THC) Screen Positive H (Negative) Ethyl Alcohol < 10 ( - 10) mg/dL SARS-CoV-2 (PCR) Negative (Negative) Point of Care Testing Test Results Negative Urine Dip Bedside Urine Glucose Negative Bedside Urine Bilirubin - Negative Bedside Urine Ketone + 15 Urine Specific [place] 1.025 Bedside Urine Occult Blood +++ Bedside Urine pH 6.0 Bedside Urine Protein + 30 Bedside Urine Nitrite + Positive Bedside Urine Leukocytes ++ 125 Esterase MDM Narrative Medical decision making narrative: Patient medically cleared. Patient's is willing to watch patient for safety but she has had some difficulty with radha. She is very fearful of being hospitalized, she is had depression recently with multiple family members and her dog dying. Discussed with patient I would like for DCR to dispatch for evaluation. Patient possibly may require involuntary placement but felt appropriate for evaluation. She is no open to voluntary placement at this time. Appears to have poor insight currently, does have family who is quite responsible at bedside. ZACHARY Ricardo met with patient here in the department. Patient was seen and evaluated after discussion patient is felt appropriate for discharge home but with care plan in place. Patient is currently able to contract for safety they have follow up with [facility]. Patient has seen a counselor once and they state that they can follow up with them at this time. Patient discharged home with her significant other who is going to take several days off to be with her. Discharge Plan Departure Patient Disposition: Home Clinical Impression: Depression with suicidal ideation Instructions: DI for Suicidal Ideation-Adult, Coping with Grief Activity Restrictions/Additional Instructions: Please follow-up with the [facility] and the counselor that you have seen their. It maybe helpful to discuss if medications would be helpful for you in the long- term. If you're feeling suicidal or having suicidal thoughts, contact the suicide hotline (this is also self referral for counseling, services and assistance): . Please return for rapidly worsening symptoms worsening thoughts of harming yourself or others, if you feel you can not keep yourself safe or other new or concerning changes Prescriptions: No Action No Known Home Medications Referrals: Tia Sorto DO [Primary Care Provider] - Stand Alone Forms: Patient Portal/API
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
[2022-12-10 13:31] LABS: Bacteria Urine Moderate (10-30); RBC Urine >100/HPF (0-5/HPF); WBC Urine 10-30/HPF (0-5/HPF)
[2022-12-10 13:32] LABS: Culture Indicated Urine Specimen Cultured; Squamous Epithelial Cell Urine 10-30 /HPF (0-5/HPF)
[2022-12-10 14:45] LABS: Free T4, Direct Thyroxine 1.14 ng/dL (0.78-2.19)
[2022-12-10 14:58] VITALS: BP 122/69; PULSE 73; O2SAT 98
[2022-12-10 14:59] LABS: Thyroid Stimulating Hormone 1.98 uIU/mL (0.47-4.68)
--- NOTE | 2022-12-10 15:07 | PC.NURSE ---
Pt wants to go home and does not understand why she is being held for so long. HOSPITAL EDUCATION COORDINATOR and RN explained the DCR process to patient and that we are unable to let her go home without a consult to DCR and/or safety plan in place. Pt feels as though she is being held hostage against her will. She does not want treatment, medication, or to be in the system at all and does not feel like any type of mental health treatment is necessary. Pt's partner is at bedside. Dr Rojas currently waiting for call back from dcr for consult. No new orders at this time.
[2022-12-10] MEDS: IBUPROFEN 400 MG TABLET PO (16:09)
[2022-12-10] MEDS: ONDANSETRON 4 MG ODT PO (16:10)
--- NOTE | 2022-12-10 16:25 | PC.NURSE ---
LOAN CLOSER NOTE: dcr currently discussing a plan with patient
--- NOTE | 2022-12-10 18:04 | CM.SWNOTE ---
ED JUKEBOX CHECKER Note DCR Davion is assigned and meets with patient and patient's partner Marlon in person. Davion identifies safety plan for patient, Marlon agree to stay home from work for a few days and supervise patient, Patient and partner agree to contact [facility] tomorrow to seek f/u appt with counselor patient previously saw and patient agrees to reach out to crisis numbers in the future. JUKEBOX CHECKER provides patient with list of crisis contacts and list of other MH providers that accept her insurance. Plan: Patient d/c to home with partner upon DCR safety plan. Patient to seek out MH appt tomorrow ZAID Monge
== END 2022-12-10 17:45 | disposition home or self-care (01) ==
PROVIDERS: Emergency Provider Emergency Medicine; PCP Family Medicine
DX: R45.851 Suicidal ideations (principal); F32.A Depression, unspecified; Z20.822 Contact with and (suspected) exposure to COVID-19
CPT/HCPCS: 80053; 80305; 80320; 80329; 81003; 81015; 81025; 84439; 84443; 85025; 87077; 87086; 87186; 87635; 99284; C9803; G0480

== ENCOUNTER → 2022-12-13 10:11 | Outpatient (CLI) | payer OTHER, MEDICAID, SELFPAY ==
--- NOTE | 2022-12-13 10:12 | DI.US.S_ITS ---
PROCEDURE: US PELVIC COMPLETE INDICATIONS: FOLLOW UP ULTRASOUND 03/2022 FOR PELVIC PAIN TECHNIQUE: Real-time scanning was performed of the pelvic organs, with image documentation. Additional endovaginal scanning was necessary due to incomplete visualization of the adnexal and endometrial structures by transabdominal scanning. COMPARISON: [facility], US, US PELVIC COMPLETE, 04/09/2022, 15:50. FINDINGS: Uterus: Uterus is anteverted and normal in size at 8.3 x 3.9 x 5.1 cm. The myometrium is homogeneous. The endometrium measures 4.9 mm combined thickness. Redemonstration of anechoic cyst at the lower uterine segment measuring up to 1.3 centimeters, previously 1.0 centimeter. Ovaries: The right ovary measures 3.0 x 1.9 x 2.8 cm, with a calculated ovarian volume of 8.2 cc. Right ovarian hypoechoic cyst measuring 1.4 x 0.8 x 1.1 centimeter, previously 1.3 x 0.8 x 1.3 centimeter. Left ovary is not well visualized. Other: No pathologic free abdominal or pelvic fluid. IMPRESSION: Lower uterine segment 1.3 centimeter anechoic cyst, increased in size since 04/09/2022. Small right ovarian hypoechoic cyst measuring up to 1.4 centimeter, previously 1.3 centimeter. Left ovary is not visualized. Follow-up pelvic ultrasound could be considered. We strive to produce accurate, complete, and clear reports of imaging services. To assist us in improving patient care, this report was composed using standard report templates and voice recognition software. Therefore, it may contain abnormal punctuation, insertions and/or omissions. Occasional wrong-word or sound-alike substitutions may occur. Though we review the report and make efforts to correct it, we do recommend that the report be read carefully in proper context to recognize any text inaccuracies. Dictated by: Aniyah Huynh M.D. on 12/13/2022 at 13:59 Approved by: Aniyah Huynh M.D. on 12/13/2022 at 14:14
== END ==
PROVIDERS: PCP Family Medicine; Referring Provider Student in an Organized Health Care Education/Training Program; Visit Provider Student in an Organized Health Care Education/Training Program
DX: R10.2 Pelvic and perineal pain (principal); N85.8 Other specified noninflammatory disorders of uterus; N83.201 Unspecified ovarian cyst, right side
CPT/HCPCS: 76830; 76856; 93976

== ENCOUNTER 2023-01-07 13:56 | Day surgery (SDC) | payer OTHER, MEDICAID, SELFPAY ==
[2023-01-01 12:45] VITALS: BMI 25.2
[2023-01-07] VITALS (7 sets, daily range): BP systolic 130–148; BP diastolic 80–101; PULSE 69–88; RESP 10–17; TEMP 36.1–36.9; O2SAT 96–100; BMI 25.2
--- NOTE | 2023-01-07 | PATH_ITS ---
[facility] Accession Number: [id number] No. of containers..01 Tissue . 01 Material submitted: . endocervix - UTERINE CURRETTAGE . 01 Diagnosis: Endometrium, Curettage: Disordered proliferative endometrium with focal changes consistent with polyp. Negative for atypical hyperplasia and malignancy. MRV 01/15/2023 1731 Local . 01 Electronically signed: . Alondra Christy MD, Pathologist NPI- [id number] . 01 Gross description: . UTERINE CURRETTAGE: Received in formalin are minute fragments of mucoid and hemorrhagic material measuring 2.0 x 2.0 x 0.3 cm in aggregate. Submitted in toto in 1 cassette. /INDIA 01/08/2023 1858 Local . 01 Pathologist provided ICD-10: R10.2 . 01 CPT . 265335 Specimen Comment: A courtesy copy of this report has been sent to [facility] Pathology Performed at: 01 [facility] [address] [place] [address], [place], [place] [id number] MD Hill Fuller MD Phone: [phone]
--- NOTE | 2023-01-07 13:58 | SUR.PREOP ---
1335 - pt still not here. called cell phone with no answer and unable to leave message. mailbox is full
--- NOTE | 2023-01-07 13:59 | SUR.PREOP ---
1400 - pt has not arrived. scheduled for 1330 arrival. called pt again. still unable to leave message.
[2023-01-07] MEDS: SCOPOLAMINE 1 PATCH TOP (14:17)
--- NOTE | 2023-01-07 15:00 | PM.PREOP ---
Pre-operative Note Interval Note History & Physical reviewed/Exam performed by Physician: Yes Changes to H&P: Yes H&P completed within 30 days and has changed as indicated here:: New diagnosis of breast cancer since her H&P. No new medications at this time. Pt desires to proceed with procedure as planned.
[2023-01-07] MEDS: ACETAMINOPHEN IV 1,000 MG/100 ML VIAL 400 MG IV (15:20)
[2023-01-07] MEDS: LIDOCAINE 1% 20 ML INJ (15:25)
--- NOTE | 2023-01-07 15:43 | P.OP_ITS ---
Operative Date/Time/Diagnoses Date of procedure: 01/07/23 Time of procedure: 15:15 Pre-op diagnosis: Chronic pelvic pain Lower uterine segment cyst seen on imaging Post-op diagnosis: same Procedure & Clinicians Procedure: Diagnostic hysteroscopy Dilation and curettage Same procedure as scheduled: Yes Indications: 47-year-old with history of chronic pelvic pain here for planned diagnostic hysteroscopy with D&C. She had a recent pelvic ultrasound done, which showed continued presence of a anechoic cyst in the lower uterine segment. Surgeon: Marion Parson Click Yes if Unassisted: Yes Anesthesia Type: General Operative Notes Findings: Normal appearing uterine cavity. Bilateral tubal ostia visualized. Specimen(s): other (uterine curettage) Estimated Blood Loss (mL): 5 Blood products transfused: none Procedure in detail: The risks, benefits, indications and alternatives of the procedure were reviewed with the patient and informed consent was obtained. The pt was taken to the operating room where general anesthesia with LMA was obtained without di fficulty. The pt was then placed in the low lithotomy position using gel-padded William stirrups. Sequential compression devices were placed bilaterally for VTE prophylaxis. The pt was then prepped and draped in the sterile fashion. A sterile speculum was placed in the patient?s vagina and the cervix was visualized. A single tooth tenaculum was used to grasp the anterior lip of the cervix. A paracervical block was then performed using appoximately 10cc of 1% Lidocaine without epinephrine. The cervix was then gently, dilated to a size 8 Hegar dilator. The operative hysteroscope was first primed and pressure set. The operative hysteroscope was then advanced through the endocervical canal under direct visualization. The uterus was distended with warm saline, and notable for the above findings. The Myosure Lite was then inserted into the operative hysteroscope. Global endometrial sampling was then performed. The operative hysteroscope was then removed under direct visualization. Tissue obtained was sent to pathology for review. The single tooth tenaculum was removed from the anterior lip of the cervix. The tenaculum site was noted to be hemostatic after direct pressure was applied. All instruments were then removed from the patient?s vagina. Hysteroscopic fluid deficit was 50cc of normal saline. The patient tolerated the procedure well. At the completion of the case the sponge and needle counts were correct x 2. The patient was taken to the PACU in stable condition. Complications: none Post-operative Condition: stable Disposition: PACU Plan for aftercare: Discharge to home once patient is meeting all discharge criteria.
--- NOTE | 2023-01-07 15:53 | SUR.OPER ---
Lithotomy on padded OR bed, head on pillow, arms secured on padded arm boards at <90 degrees abduction. Legs secured in padded yellow fins stirrups.
--- NOTE | 2023-01-07 16:03 | SUR.PHASEI ---
Patient reported that the room of her mouth felt different, uncomfortable. Swollen area noted on the roof of the mouth. ROSIE Brown, notified and evaluated patient. Stephanie recommended salt water swishes to mouth for the swelling.
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
== END 2023-01-07 16:43 | disposition home or self-care (01) ==
PROVIDERS: PCP Family Medicine; Referring Provider Student in an Organized Health Care Education/Training Program; Visit Provider Student in an Organized Health Care Education/Training Program
PROC: 0UDB8ZZ Extraction of Endometrium, Via Natural or Artificial Opening Endoscopic (ICD-10-PCS; CPT 58558; principal; 2023-01-07 15:00)
DX: R10.2 Pelvic and perineal pain (principal)
CPT/HCPCS: 58558; 81025; J0131; J1100; J1885; J2250; J2405; J2704; J3010

== ENCOUNTER 2023-01-28 14:36 | Emergency (ER) | payer OTHER, MEDICAID, SELFPAY ==
[2023-01-28] VITALS (14 sets, daily range): BP systolic 97–129; BP diastolic 54–89; PULSE 72–93; RESP 18; TEMP 36.7; O2SAT 95–100; BMI 25.2
[2023-01-28] MEDS: ONDANSETRON 4 MG/2 ML INJ IV ×2 (14:50→19:07)
[2023-01-28 15:07] LABS: Add Manual Diff / Slide Review NO; Basophils Absolute Auto 0 /uL (0-100); Basophils Percent Auto 0.1 % (0-2); Eosinophils Absolute Auto 0 /uL (0-450); Eosinophils Percent Auto 0.1 % (2-4); Hematocrit 41.2 % (36-46); Hemoglobin 14.1 g/dL (12.0-16.0); Lymphocytes Absolute Auto 200 /uL (1100-4500); Lymphocytes Percent Auto 1.9 % (25-40); Mean Corpuscular HGB Conc 34.3 % (30-36); Mean Corpuscular Volume 87.4 fL (80-100); Monocytes Absolute Auto 200 /uL (0-900); Neutrophils Absolute Auto 12100 /uL (1500-7000); Neutrophils Percent Auto 95.9 % (50-75); Platelet Count 311 X10^3/uL (150-400); Red Blood Cell Count 4.71 X10^6/uL (4.0-5.2); White Blood Cell Count 12.6 X10^3/uL (4.5-11.0)
[2023-01-28 15:42] LABS: Alanine Aminotransferase 19 IU/L (<35); Albumin 4.3 g/dL (3.5-5.0); Albumin Globulin Ratio 1.2 (1.0-2.8); Alkaline Phosphatase 84 U/L (38-126); Aspartate Aminotransferase 21 IU/L (14-36); BUN Creatinine Ratio 44.2 (6-22); Bilirubin Total 0.6 mg/dL (0.2-1.3); Blood Urea Nitrogen 23 mg/dL (7-17); Carbon Dioxide 24 mmol/L (22-32); Chloride 102 mmol/L (98-107); Estimated Glomerular Filt Rate > 60 mL/min (>60); Globulin 3.5 g/dL (1.7-4.1); Glucose 112 mg/dL (70-100); HEMOLYSIS < 15 (0-50); Lipase 75 U/L (23-300); Potassium 3.8 mmol/L (3.4-5.1); Sodium 135 mmol/L (137-145); Total Protein 7.8 g/dL (6.3-8.2)
[2023-01-28 16:41] LABS: Appearance Urine UA CLEAR; Bilirubin Urine UA NEGATIVE (NEGATIVE); Color Urine UA YELLOW; Glucose Urine UA NEGATIVE (Negative); Ketones Urine UA 2+ (NEGATIVE); Leukocyte Esterase Urine UA NEGATIVE (NEGATIVE); Nitrite Urine UA NEGATIVE (Negative); Occult Blood Urine UA TRACE-INTACT (Negative); Protein Urine UA NEGATIVE (Negative); Specific Gravity Urine UA 1.025 (1.000-1.035); Urobilinogen Urine UA 0.2 E.U./dL (0.2)
[2023-01-28 16:46] LABS: Pregnancy Test Urine Negative (Negative)
[2023-01-28 16:50] LABS: Bacteria Urine None Seen; RBC Urine None Seen (0-5/HPF); WBC Urine None Seen (0-5/HPF); pH Urine UA 5.5 (4.5-8.0)
[2023-01-28 16:51] LABS: Culture Indicated Urine Cult Not Indicated; Squamous Epithelial Cell Urine 0-1 /HPF (0-5/HPF)
[2023-01-28] MEDS: PANTOPRAZOLE 40 MG VIAL IV (19:23)
[2023-01-28] MEDS: KETOROLAC 30 MG/ML VIAL IV (19:23)
[2023-01-28] MEDS: SODIUM CHLORIDE 0.9% 1,000 ML 1000 ML IV ×2 (19:24→21:25)
--- NOTE | 2023-01-28 20:27 | ED_ITS ---
HPI - Nausea/Vomiting/Diarrhea General Chief complaint: Nausea/Vomiting/Diarrhea Stated complaint: feeling sick since 4am, poss related to cancer Time Seen by Provider: 01/28/23 19:21 Source: patient Mode of arrival: Family Vehicle History of Present Illness HPI Narrative: Patient is a 47-year-old female with new diagnosis of breast cancer presenting today with nausea vomiting diarrhea. She reports she is supposed to have a lumpectomy next week, she is scheduled for radiation consult tomorrow. This morning she woke up with severe nausea vomiting and diarrhea. She is having some all over abdominal pain. She is not able down. She denies fevers chills dizziness or lightheadedness. Related Data Previous Rx's Medication Instructions Recorded ondansetron 4 mg disintegrating 4 mg PO Q8H PRN nausea and 01/28/23 tablet vomiting #20 tabs ondansetron 4 mg disintegrating 4 mg PO Q8H PRN nausea and 01/28/23 tablet vomiting #20 tabs Allergies Allergy/AdvReac Type Severity Reaction Status Date / Time codeine AdvReac Nausea Verified 01/28/23 14:45 Review of Systems Review of Systems ROS Unobtainable: All systems reviewed & are unremarkable except as noted in HPI and below Patient History Medical History Acne Major depression, single episode No significant medical problems Surgical History History of delivery H/O dilation and curettage Family History Mother Ovarian cancer Social History household members: spouse Smoking Status: Never smoker alcohol intake: current substance use type: does not use Smoking Status: Never smoker alcohol intake frequency: holidays/special occasions only Substance Use Type: marijuana Exam Initial Vital Signs Initial Vital Signs: Vital Signs Temperature 98.1 F 01/28/23 14:41 Pulse Rate 93 H 01/28/23 14:41 Respiratory Rate 18 01/28/23 14:41 Blood Pressure 120/77 01/28/23 14:41 Pulse Oximetry 100 01/28/23 14:41 Oxygen Delivery Method Room Air 01/28/23 14:41 GENERAL: Alert 47-year-old female appears to not feel well and in no acute distress. HEENT: Head atraumatic,EOMI, pupils reactive, face symmetric, moist mucous membranes CARDIOVASCULAR: Regular rate and rhythm without murmurs, rubs or gallops. RESPIRATORY: Breath sounds equal bilaterally, no wheezes rales or rhonchi. ABDOMEN: Soft, mild epigastric and periumbilical pain no significant distention no guarding rebound EXTREMITIES: Normal range of motion, no clubbing or edema. Neurovascularly intact NEUROLOGICAL: Alert and oriented x4.Normal gait and speech. SKIN: Warm, dry, no laceration, no petechiae, no rashes or lesions. Course Orders Ordered: ED Orders 01/28/23 20:54 CT chest abd pel w con Stat Discontinued Medications Sodium Chloride (Normal Saline 0.9%) 1,000 mls @ 1,000 mls/hr IV BOLUS ONE Stop: 01/28/23 20:16 Last Infusion: 01/28/23 20:40 Dose: Infused Documented By: Admin: 01/28/23 19:24 Dose: 1,000 mls/hr Documented By: DARRYL Sodium Chloride (Normal Saline 0.9%) 1,000 mls @ 1,000 mls/hr IV BOLUS ONE Stop: 01/28/23 21:53 Last Infusion: 01/28/23 22:36 Dose: Infused Documented By: Admin: 01/28/23 21:25 Dose: 1,000 mls/hr Documented By: DARRYL Ketorolac Tromethamine (Ketorolac 30 Mg/Ml Vial) 30 mg IV NOW ONE Stop: 01/28/23 19:18 Last Admin: 01/28/23 19:23 Dose: 30 mg Documented By: DARRYL Ondansetron HCl (Ondansetron 4 Mg Odt) 4 mg PO NOW PRN PRN Reason: Nausea And Vomiting Ondansetron HCl (Ondansetron 4 Mg/2 Ml Inj) 4 mg IV NOW PRN PRN Reason: Nausea And Vomiting Last Admin: 01/28/23 14:50 Dose: 4 mg Documented By: MARQUIS Ondansetron HCl (Ondansetron 4 Mg/2 Ml Inj) 4 mg IV NOW ONE Stop: 01/28/23 19:02 Last Admin: 01/28/23 19:07 Dose: 4 mg Documented By: ELIZABETH Pantoprazole Sodium (Pantoprazole 40 Mg Vial) 40 mg IV NOW ONE Stop: 01/28/23 19:19 Last Admin: 01/28/23 19:23 Dose: 40 mg Documented By: DARRYL Vital Signs Vital signs: Vital Signs - 8 hr 01/28/23 19:30 01/28/23 19:30 01/28/23 20:00 Pulse Rate 78 Blood Pressure 125/67 110/57 L Pulse Oximetry 99 Oxygen Delivery Method Room Air 01/28/23 20:00 01/28/23 20:30 01/28/23 20:30 Pulse Rate 82 79 Blood Pressure 108/57 L Pulse Oximetry 97 97 Oxygen Delivery Method Room Air 01/28/23 21:00 01/28/23 21:00 01/28/23 21:25 Pulse Rate 78 76 Blood Pressure 103/57 L Pulse Oximetry 95 99 Oxygen Delivery Method Room Air Room Air 01/28/23 21:25 01/28/23 21:30 01/28/23 21:30 Pulse Rate 85 Blood Pressure 122/56 L 119/67 Pulse Oximetry 100 Oxygen Delivery Method Room Air 01/28/23 22:00 01/28/23 22:01 01/28/23 22:01 Pulse Rate 76 72 Blood Pressure 110/55 L Pulse Oximetry 100 100 Oxygen Delivery Method Room Air Room Air 01/28/23 22:30 01/28/23 22:30 01/28/23 23:00 Pulse Rate 72 77 Blood Pressure 97/54 L Pulse Oximetry 96 97 Oxygen Delivery Method Room Air 01/28/23 23:00 01/28/23 23:33 Pulse Rate 78 Blood Pressure 97/54 L Pulse Oximetry 99 Oxygen Delivery Method MDM - Nausea/Vomiting/Diarrhea Lab Data 01/28/23 14:58 01/28/23 14:58 Labs: Lab Results 01/28/23 01/28/23 Range/Units 14:58 16:31 WBC 12.6 H (4.5-11.0) X10^3/uL RBC 4.71 (4.0-5.2) X10^6/uL Hgb 14.1 (12.0-16.0) g/dL Hct 41.2 (36-46) % MCV 87.4 (80-100) fL MCH 30.0 (26-34) PG MCHC 34.3 (30-36) % RDW 13.0 (11.6-14.8) % Plt Count 311 (150-400) X10^3/uL Neut % (Auto) 95.9 H (50-75) % Lymph % (Auto) 1.9 L (25-40) % [place] % (Auto) 2.0 L (3-14) % Eos % (Auto) 0.1 L (2-4) % Baso % (Auto) 0.1 (0-2) % Neut # (Auto) 92072 H (0173-8250) /uL Lymph # (Auto) 200 L (5167-3469) /uL [place] # (Auto) 200 (0-900) /uL Eos # (Auto) 0 (0-450) /uL Baso # (Auto) 0 (0-100) /uL Sodium 135 L (137-145) mmol/L Potassium 3.8 (3.4-5.1) mmol/L Chloride 102 (98-107) mmol/L Carbon Dioxide 24 (22-32) mmol/L BUN 23 H (7-17) mg/dL Creatinine 0.52 (0.52-1.04) mg/dL Estimated GFR > 60 (>60) mL/min BUN/Creatinine Ratio 44.2 H (6-22) Glucose 112 H (70-100) mg/dL Calcium 9.0 (8.4-10.2) mg/dL Total Bilirubin 0.6 (0.2-1.3) mg/dL AST 21 (14-36) IU/L ALT 19 (<35) IU/L Alkaline Phosphatase 84 (38-126) U/L Total Protein 7.8 (6.3-8.2) g/dL Albumin 4.3 (3.5-5.0) g/dL Globulin 3.5 (1.7-4.1) g/dL Albumin/Globulin Ratio 1.2 (1.0-2.8) Lipase 75 (23-300) U/L Urine Color Yellow Urine Appearance Clear Urine pH 5.5 (4.5-8.0) Ur Specific [place] 1.025 (1.000-1.035) Urine Protein Negative (Negative) Urine Glucose (UA) Negative (Negative) g/dL Urine Ketones 2+ H (NEGATIVE) Urine Occult Blood Trace-intact (Negative) Urine Nitrate Negative (Negative) Urine Bilirubin Negative (NEGATIVE) Urine Urobilinogen 0.2 (0.2) E.U./dL Ur Leukocyte Esterase Negative (NEGATIVE) Urine RBC None seen (0-5/HPF) Urine WBC None seen (0-5/HPF) Ur Squamous Epith Cells 0-1 /hpf D (0-5/HPF) Urine Bacteria None seen (None) Ur Culture Indicated? Cult not indicated Urine Test Negative (Negative) Imaging Data CT scan - chest: Radiologist's Impression: PROCEDURE: CT CHEST ABD PEL W CON INDICATIONS: new breast CA--n/v now TECHNIQUE: After the administration of intravenous contrast, 5 mm thick sections acquired from the lung apices to the symphysis. 5 mm coronal and sagittal reformats were performed, with additional 7 mm MIP reformats through the lungs. For radiation dose reduction, the following was used: automated exposure control, adjustment of mA and/or kV according to patient size. COMPARISON: [facility], MR, MR BREAST BILATERAL WITH CAD, 01/25/2023, 9:49. FINDINGS: Image quality: Excellent. CHEST: Lungs and pleura: No acute airspace opacities. No pleural effusions or pneumothorax. Central and peripheral airways appear patent and normal in caliber. Mediastinum: Heart size is normal. No pericardial effusion. No mediastinal or hilar adenopathy by size criteria. Thoracic aorta and central pulmonary arteries are normal in size. Esophagus is normal in caliber. No hiatal hernia. Chest wall: Left breast malignancy is better demonstrated on recent breast MRI. No axillary or supraclavicular adenopathy by size criteria. No internal mammary lymphadenopathy. Thyroid appears normal. ABDOMEN: Solid organs: Liver is normal in size and enhancement. Gallbladder is unremarkable. Biliary system is non dilated. Pancreas enhances normally. Spleen is normal in size and enhancement. No adrenal nodules. Kidneys demonstrate normal size and enhancement, without hydronephrosis. Peritoneum and bowel: Prominent nondilated fluid-filled loops of small bowel throughout the abdomen with mild mural hyperenhancement, suspicious for a nonspecific enteritis. No signs of bowel obstruction. No free fluid or air. Nodes and vessels: No retroperitoneal or mesenteric adenopathy by size criteria. Aorta and inferior vena cava are normal in size. Miscellaneous: No ventral hernias. PELVIS: Genitourinary: Bladder is nondistended, which limits evaluation. Miscellaneous: No inguinal hernias or adenopathy. Bones: No aggressive bony lesions. No vertebral body compression fractures. IMPRESSION: 1. Nondilated fluid-filled loops of small bowel throughout the lower abdomen are suspicious for a nonspecific enteritis. 2. Known left breast malignancy is better demonstrated on the recent breast MRI. No significant lymphadenopathy. No signs of distant metastatic disease. Approved by: Delta Caldera M.D. on 01/28/2023 at 23:26 ECG Data Interpretation: Normal sinus rhythm rate 85 NJ interval 170 QRS 83 QTC 4330 STD does no T-wave inversions MDM Narrative Medical decision making narrative: Patient 47-year-old female with newly diagnosed left-sided breast cancer presenting today with nausea vomiting diarrhea. Unable to keep anything down. Blood work has been reviewed leukocytosis 12.6 without anemia, electrolytes sodium 135 creatinine 0.52 potassium 3.8 glucose 112 Patient has no evidence of significant dehydration anemia or infection. She has both vomiting and diarrhea patient with a gastroenteritis. CT chest abdomen pelvis was done due to recent cancer diagnosis there is no further masses or obstruction s CT also consistent with an enteritis. Nausea vomiting controlled in the ED she received 2 L of IV fluid. No need for admission or further evaluation Discharge Plan Departure Patient Disposition: Home Clinical Impression: Gastroenteritis Instructions: DI for Viral Gastroenteritis -- Adult Activity Restrictions/Additional Instructions: *You have been diagnosed with gastroenteritis *What to do: At this time increase fluid intake as tolerated recommend Pedialyte Gatorade water juice etc Your CT scan today did not show any masses or further cancer *Continue to take medications as directed Zofran 4 mg every 8 hours if needed for nausea or vomiting--ERNIE birch *Follow up with your primary care provider in 2-3 days or call [phone] *Return to ER if you should have persistent vomiting abdominal [or] any new, worsening or concerning symptoms Prescriptions: New ondansetron 4 mg tablet,disintegrating 4 mg PO Q8H PRN (Reason: nausea and vomiting) Qty: 20 0RF ondansetron 4 mg tablet,disintegrating 4 mg PO Q8H PRN (Reason: nausea and vomiting) Qty: 20 0RF Referrals: Tia Sorto DO [Primary Care Provider] - Stand Alone Forms: Patient Portal/API
--- NOTE | 2023-01-28 20:54 | DI.CT.S_ITS ---
PROCEDURE: CT CHEST ABD PEL W CON INDICATIONS: new breast CA--n/v now TECHNIQUE: After the administration of intravenous contrast, 5 mm thick sections acquired from the lung apices to the symphysis. 5 mm coronal and sagittal reformats were performed, with additional 7 mm MIP reformats through the lungs. For radiation dose reduction, the following was used: automated exposure control, adjustment of mA and/or kV according to patient size. COMPARISON: [facility], MR, MR BREAST BILATERAL WITH CAD, 01/25/2023, 9:49. FINDINGS: Image quality: Excellent. CHEST: Lungs and pleura: No acute airspace opacities. No pleural effusions or pneumothorax. Central and peripheral airways appear patent and normal in caliber. Mediastinum: Heart size is normal. No pericardial effusion. No mediastinal or hilar adenopathy by size criteria. Thoracic aorta and central pulmonary arteries are normal in size. Esophagus is normal in caliber. No hiatal hernia. Chest wall: Left breast malignancy is better demonstrated on recent breast MRI. No axillary or supraclavicular adenopathy by size criteria. No internal mammary lymphadenopathy. Thyroid appears normal. ABDOMEN: Solid organs: Liver is normal in size and enhancement. Gallbladder is unremarkable. Biliary system is non dilated. Pancreas enhances normally. Spleen is normal in size and enhancement. No adrenal nodules. Kidneys demonstrate normal size and enhancement, without hydronephrosis. Peritoneum and bowel: Prominent nondilated fluid-filled loops of small bowel throughout the abdomen with mild mural hyperenhancement, suspicious for a nonspecific enteritis. No signs of bowel obstruction. No free fluid or air. Nodes and vessels: No retroperitoneal or mesenteric adenopathy by size criteria. Aorta and inferior vena cava are normal in size. Miscellaneous: No ventral hernias. PELVIS: Genitourinary: Bladder is nondistended, which limits evaluation. Miscellaneous: No inguinal hernias or adenopathy. Bones: No aggressive bony lesions. No vertebral body compression fractures. IMPRESSION: 1. Nondilated fluid-filled loops of small bowel throughout the lower abdomen are suspicious for a nonspecific enteritis. 2. Known left breast malignancy is better demonstrated on the recent breast MRI. No significant lymphadenopathy. No signs of distant metastatic disease. Approved by: Delta Caldera M.D. on 01/28/2023 at 23:26
== END 2023-01-28 23:58 | disposition home or self-care (01) ==
PROVIDERS: Emergency Medicine; Emergency Provider Emergency Medicine; PCP Family Medicine
DX: K52.9 Noninfective gastroenteritis and colitis, unspecified (principal)
CPT/HCPCS: 36415; 71260; 74177; 80053; 81001; 81025; 83690; 85025; 93005; 96374; 96375; 96376; 99284; C9113; J1885; J2405; Q9967

== ENCOUNTER → 2023-10-30 15:00 | Outpatient (CLI) | payer OTHER, MEDICAID, SELFPAY ==
[2023-10-30 16:55] LABS: HCG Quantitative /Beta subunit < 2.39 mIU/mL
== END ==
LOC: LAB 15:01
PROVIDERS: PCP Family Medicine; Referring Provider Student in an Organized Health Care Education/Training Program; Visit Provider Student in an Organized Health Care Education/Training Program
DX: N93.9 Abnormal uterine and vaginal bleeding, unspecified (principal)
CPT/HCPCS: 36415; 84702

== ENCOUNTER → 2023-11-05 07:02 | Outpatient (CLI) | payer OTHER, MEDICAID, SELFPAY ==
--- NOTE | 2023-11-05 07:03 | DI.US.S_ITS ---
PROCEDURE: US PELVIC COMPLETE INDICATIONS: LIGHT BLEEDING X 1 MONTH -ABNORMAL UTERINE BLEEDING TECHNIQUE: Real-time scanning was performed of the pelvic organs, with image documentation. Additional endovaginal scanning was necessary due to incomplete visualization of the adnexal and endometrial structures by transabdominal scanning. COMPARISON: [facility], CT, CT CHEST ABD PEL W CON, 01/28/2023, 21:03. [facility], US, US PELVIC COMPLETE, 12/13/2022, 10:22. [facility], US, US PELVIC COMPLETE, 04/09/2022, 15:50. FINDINGS: Uterus: Uterus is anteverted and slightly enlarged, measuring 10.2 x 4.5 x 5.0 cm. The myometrium is heterogenous. The endometrium measures 14 mm combined thickness. The previously noted lower uterine segment cystic lesion is no longer identified. Nabothian cysts are present at the cervix. Ovaries: The right ovary measures 5.4 x 3.5 x 3.7 cm. The majority of the right ovary is occupied by a 3.4 x 3.0 x 3.1 cm multiloculated cystic lesion with a thin internal septation and without any internal vascularity. The left ovary is not well visualized. Less than 12 follicles are present in the right ovary. Other: Small amount of pelvic free fluid, likely physiologic. IMPRESSION: 1. Interval resolution of the lower uterine segment cystic finding. 2. Multiloculated 3.4 cm right ovarian cyst, occupying the majority of the ovarian volume. This finding may represent interval change in appearance of the previously noted 1.4 cm hypoechoic cyst on the 12/13/2022 pelvic ultrasound. Based on the O-RADS risk stratification system, this finding is an O-RADS 3 (low risk) lesion with a less than 10 % risk of malignancy. Follow-up options would include referral to gynecology versus a 6 month follow-up pelvic ultrasound. We strive to produce accurate, complete, and clear reports of imaging services. To assist us in improving patient care, this report was composed using standard report templates and voice recognition software. Therefore, it may contain abnormal punctuation, insertions and/or omissions. Occasional wrong-word or sound-alike substitutions may occur. Though we review the report and make efforts to correct it, we do recommend that the report be read carefully in proper context to recognize any text inaccuracies. Dictated by: Massimo Nascimento M.D. on 11/05/2023 at 16:32 Approved by: Massimo Nascimento M.D. on 11/05/2023 at 16:47
== END ==
LOC: US 07:02
PROVIDERS: PCP Family Medicine; Referring Provider Student in an Organized Health Care Education/Training Program; Visit Provider Student in an Organized Health Care Education/Training Program
DX: N92.6 Irregular menstruation, unspecified (principal); D39.11 Neoplasm of uncertain behavior of right ovary
CPT/HCPCS: 76830; 76856

== ENCOUNTER → 2024-01-01 09:53 | Outpatient (CLI) | payer OTHER, MEDICAID, SELFPAY ==
[2024-01-01 11:19] LABS: Appearance Urine UA SL CLOUDY; Bilirubin Urine UA NEGATIVE (NEGATIVE); Color Urine UA YELLOW; Glucose Urine UA NEGATIVE (Negative); Ketones Urine UA NEGATIVE (NEGATIVE); Leukocyte Esterase Urine UA 1+ (NEGATIVE); Nitrite Urine UA POSITIVE (Negative); Occult Blood Urine UA NEGATIVE (Negative); Protein Urine UA NEGATIVE (Negative); Specific Gravity Urine UA 1.015 (1.000-1.035); Urobilinogen Urine UA 0.2 E.U./dL (0.2)
[2024-01-01 11:20] LABS: pH Urine UA 5.5 (4.5-8.0)
[2024-01-01 11:21] LABS: Urine Volume 10mL (spun)
[2024-01-01 11:23] LABS: Bacteria Urine Many (>30); Culture Indicated Urine Specimen Cultured; RBC Urine None Seen (0-5/HPF); Squamous Epithelial Cell Urine 1-5 /HPF (0-5/HPF); WBC Urine 5-10/HPF (0-5/HPF)
== END ==
PROVIDERS: Referring Provider Student in an Organized Health Care Education/Training Program; Visit Provider Student in an Organized Health Care Education/Training Program
DX: R30.0 Dysuria (principal)
CPT/HCPCS: 81001; 87077; 87086; 87186

== ENCOUNTER → 2024-01-09 08:47 | Outpatient (CLI) | payer OTHER, MEDICAID, SELFPAY ==
[2024-01-10 13:11] LABS: Candida species Positive (Negative); Gardnerella vaginalis Positive (Negative); Trichomoas vaginalis Negative (Negative)
== END ==
PROVIDERS: Visit Provider Student in an Organized Health Care Education/Training Program
DX: N89.8 Other specified noninflammatory disorders of vagina (principal)
CPT/HCPCS: 87086; 87480; 87510; 87660

== ENCOUNTER → 2024-02-04 09:48 | Outpatient (CLI) | payer OTHER, MEDICAID, SELFPAY ==
[2024-02-05 14:35] LABS: Candida species Negative (Negative); Gardnerella vaginalis Positive (Negative); Trichomoas vaginalis Negative (Negative)
== END ==
PROVIDERS: Referring Provider Student in an Organized Health Care Education/Training Program; Visit Provider Student in an Organized Health Care Education/Training Program
DX: Z11.3 Encounter for screening for infections with a predominantly sexual mode of transmission (principal); N89.8 Other specified noninflammatory disorders of vagina; N39.3 Stress incontinence (female) (male)
CPT/HCPCS: 87077; 87086; 87186; 87480; 87491; 87510; 87563; 87591; 87660

== ENCOUNTER → 2024-02-14 07:34 | Outpatient (CLI) | payer OTHER, SELFPAY ==
--- NOTE | 2024-02-14 07:35 | DI.US.S_ITS ---
PROCEDURE: US PELVIC COMPLETE INDICATIONS: FOLLOW-UP OVARIAN CYST TECHNIQUE: Real-time scanning was performed of the pelvic organs, with image documentation. Additional endovaginal scanning was necessary due to incomplete visualization of the adnexal and endometrial structures by transabdominal scanning. COMPARISON: [facility], US, US PELVIC COMPLETE, 11/05/2023, 7:24. FINDINGS: Uterus: Uterus is anteverted and normal in size at 10.3 x 5.4 x 5.0 cm. The myometrium is homogeneous. The endometrium measures 7 mm combined thickness. A complex nabothian cyst is again noted within the cervix measuring approximately 2.2 x 0.9 x 1.2 centimeters grossly stable from the prior study. Ovaries: Neither ovary is identified on this study with transabdominal or endovaginal imaging. A complex cyst was identified on the prior study in the right adnexa previously and this is not identified no other adnexal abnormalities are noted. Other: No pathologic free abdominal or pelvic fluid. IMPRESSION: 1.. Stable complex nabothian cyst. 2. Previously noted complex right ovarian cyst not identified on this study. Neither ovary can be clearly identified. Bowel gas is seen in the adnexa. Recommend follow-up pelvic ultrasound in 6 weeks to re-evaluate adnexa given the previous complex cyst as a lesion could be obscured by bowel gas on this study. We strive to produce accurate, complete, and clear reports of imaging services. To assist us in improving patient care, this report was composed using standard report templates and voice recognition software. Therefore, it may contain abnormal punctuation, insertions and/or omissions. Occasional wrong-word or sound-alike substitutions may occur. Though we review the report and make efforts to correct it, we do recommend that the report be read carefully in proper context to recognize any text inaccuracies. Dictated by: Amado Delong M.D. on 02/14/2024 at 8:21 Approved by: Amado Delong M.D. on 02/14/2024 at 8:32
== END ==
PROVIDERS: Referring Provider Student in an Organized Health Care Education/Training Program; Visit Provider Student in an Organized Health Care Education/Training Program
DX: N83.201 Unspecified ovarian cyst, right side (principal); N88.8 Other specified noninflammatory disorders of cervix uteri; R05.1 Acute cough
CPT/HCPCS: 76830; 76856; 87633

== ENCOUNTER → 2024-02-14 08:34 | Outpatient (CLI) | payer OTHER, SELFPAY ==
[2024-02-14 10:45] LABS: Adenovirus Not Detected (Not Detect); B. parapertussis Not Detected (Not Detecte); Bordetella pertussis Not Detected (Not Detect); Chlamydophila pneumoniae Not Detected (Not Detect); Coronavirus 229E Not Detected (Not Detect); Coronavirus HKU1 Not Detected (Not Detect); Coronavirus NL 63 Not Detected (Not Detect); Coronavirus OC43 Not Detected (Not Detect); Human Metapneumovirus Not Detected (Not Detect); Human Rhinovirus/Enterovirus Not Detected (Not Detect); Influenza A Not Detected (Not Detect); Influenza B Not Detected (Not Detect); Mycoplasma pneumoniae Not Detected (Not Detect); Parainfluenza Virus 1 Not Detected (Not Detect); Parainfluenza Virus 2 Not Detected (Not Detect); Parainfluenza Virus 3 Not Detected (Not Detect); Parainfluenza Virus 4 Detected (Not Detect); Respiratory Syncytial Virus Not Detected (Not Detect); SARS- CoV-2 Not Detected (Not Detecte)
== END ==
PROVIDERS: Visit Provider Nurse Practitioner Family
DX: R05.1 Acute cough (principal)
CPT/HCPCS: 87633